=== PATIENT | male | born 1950 | race Caucasian/White ===

== ENCOUNTER 2023-09-08 09:42 | Inpatient (IN) | payer MEDICARE, OTHER ==
[2023-09-08] MEDS: NITROGLYCERIN SL TABS 0.4 MG TAB SUBLINGUAL STA (10:18)
[2023-09-08] MEDS: SODIUM CHLORIDE 0.9% 500 ML 500 ML IV STA (10:35)
[2023-09-08 10:46] LABS: Anisocytosis Slight; Basophils % (A) 0 %; Eosinophils # (A) 0.3 k/uL (0-0.7); Eosinophils % (A) 5 %; HCT 27.4 % (39.0-53.0); HGB 8.4 gm/dL (13.0-17.5); Hypochromasia Slight; Lymphocytes # (A) 0.9 k/uL (1.0-4.8); Lymphocytes % (A) 17 %; MCHC 30.7 g/dL (31.0-37.0); MCV 107.3 fL (80.0-100.0); Macrocytosis Marked; Mean Platelet Volume 7.7; Monocytes # (A) 0.4 k/uL (0-1.0); Monocytes % (A) 7 %; Neutrophils # (A) 3.8 k/uL (1.3-7.7); Neutrophils % (A) 70 %; Platelet Count 198 k/uL (150-450); RBC 2.55 m/uL (4.30-5.90); RDW 17.7 % (11.5-15.5); WBC 5.4 k/uL (3.8-10.6)
--- NOTE | 2023-09-08 10:56 | XR ---
EXAMINATION TYPE: XR chest 2V DATE OF EXAM: 09/08/2023 HISTORY: Shortness of breath. COMPARISON: 09/08/2023 TECHNIQUE: Single view of the chest is submitted. FINDINGS: Demonstrated are scattered senescent parenchymal change. Tracheostomy tube is in place. Persistent pulmonary venous congestion without overt failure. Left basilar effusion with atelectasis and/or infiltrate. The heart is stable. Hilar and mediastinal structures are within normal limits. Degenerative changes are seen of the dorsal spine. IMPRESSION: 1. Overall stable chest.
[2023-09-08 11:14] LABS: Partial Thromboplastin Time 24.9 sec (22.0-30.0); Prothrombin Time 10.7 sec (10.0-12.5)
[2023-09-08 11:17] LABS: ALT 12 U/L (4-49); AST 24 U/L (17-59); African American GFR (CKD) 13 (>60 ml/min/1.73 sqM); Albumin 3.5 g/dL (3.5-5.0); Alkaline Phosphatase 80 U/L (38-126); Anion Gap 7 mmol/L; Blood Urea Nitrogen 33 mg/dL (9-20); Calcium 9.3 mg/dL (8.4-10.2); Carbon Dioxide 35 mmol/L (22-30); Chloride 98 mmol/L (98-107); Glucose 75 mg/dL (74-99); Lipase 97 U/L (23-300); Magnesium 2.1 mg/dL (1.6-2.3); Non-African American GFR(CKD) 11 (>60 ml/min/1.73 sqM); Sodium 140 mmol/L (137-145); Total Bilirubin 0.7 mg/dL (0.2-1.3); Total Protein 6.2 g/dL (6.3-8.2)
[2023-09-08 11:21] LABS: NT-Pro-B-Type Natriuretic Pept 25200 pg/mL
[2023-09-08] MEDS ORDERED: NALOXONE 0.4 MG/ML 1 ML VIAL IV PRN (11:43)
[2023-09-08] MEDS ORDERED: HEPARIN SODIUM 1,000 UN/ML (10ML VL) IV PRN (11:43)
--- NOTE | 2023-09-08 11:46 | ED ---
General Adult HPI - General Chief complaint: Chest Pain Stated complaint: chest pain Time Seen by Provider: 09/08/23 09:57 Source: patient, EMS, RN notes reviewed, old records reviewed Mode of arrival: EMS - History of Present Illness Initial comments: Patient is a 73-year-old male who presents emergency department for chest pain. History of CABG completed in April 2023 at [facility], ESRD on hemodialysis, trach and PEG tube from he believes that admission, who presents emergency department after experiencing chest pain during dialysis. States he received a full run of dialysis. However began developing left-sided chest pain. Was given aspirin 324 mg by EMS on the way to the hospital. Pain resolved but is now back. Approximately 4 out of 10. Does not radiate. No emesis. No nausea. No diaphoresis. Describes as a pressure. Patient does hav e some left-sided chest wall pain as well but he states there is a different pain present as well. Denies any injury. Has no other acute complaints at this time. Presents for further evaluation. - Related Data Home Medications Medication Instructions Recorded Confirmed Acetaminophen [Tylenol 8 Hour] 650 mg PO Q6H PRN 09/08/23 09/08/23 Acetaminophen [Tylenol] 650 mg PEG/G-TUBE Q8H 09/08/23 09/08/23 Amiodarone [Cordarone] 200 mg PO DAILY 09/08/23 09/08/23 Aspirin EC [Ecotrin Low Dose] 81 mg PO DAILY 09/08/23 09/08/23 Atorvastatin [Lipitor] 40 mg PO HS 09/08/23 09/08/23 Docusate [Colace] 100 mg PO DAILY 09/08/23 09/08/23 Famotidine [Pepcid] 20 mg PO Q2D 09/08/23 09/08/23 Heparin Sodium,Porcine (1 ml) 5,000 unit SQ Q12HR 09/08/23 09/08/23 [Heparin Sodium] Insulin Lispro [humaLOG Kwikpen] See Protocol SQ ACHS 09/08/23 09/08/23 Ipratropium-Albuterol Nebulize 3 ml INHALATION RT-Q4H 09/08/23 09/08/23 [Duoneb 0.5 mg-3 mg/3 ml Soln] Melatonin 6 mg PO HS 09/08/23 09/08/23 Midodrine HCl [ProAmatine] 10 mg PO Q8H PRN 09/08/23 09/08/23 Nitroglycerin Sl Tabs [Nitrostat] 0.4 mg SUBLINGUAL Q5M PRN 09/08/23 09/08/23 QUEtiapine [SEROquel] 50 mg PO DAILY 09/08/23 09/08/23 QUEtiapine [SEROquel] 100 mg PO HS 09/08/23 09/08/23 bisacodyL [Dulcolax] 10 mg RECTAL DAILY PRN 09/08/23 09/08/23 carvediloL [Coreg] 3.125 mg PO BID 09/08/23 09/08/23 hydrOXYzine HCL [Atarax] 25 mg PO Q8H PRN 09/08/23 09/08/23 polyethylene glycoL 3350 [Miralax] 17 gm PO DAILY PRN 09/08/23 09/08/23 traMADol HCL 50 mg PO Q6H PRN 09/08/23 09/08/23 Allergies Allergy/AdvReac Type Severity Reaction Status Date / Time No Known Allergies Allergy Verified 09/08/23 11:54 Review of Systems ROS Statement: Those systems with pertinent positive or pertinent negative responses have been documented in the HPI. Review of Systems: CONST: Denies fever EYES: Denies blurry vision ENT: Denies nasal congestion C/V: Endorses chest pain RESP: Denies shortness of breath GI: Denies abdominal pain : Denies dysuria SKIN: Denies rash. MSK: Denies joint pain. NEURO: Denies headache ROS Other: All systems not noted in ROS Statement are negative. Past Medical History Past Medical History: Atrial Fibrillation, Coronary Artery Disease (CAD), COPD, Diabetes Mellitus, Hyperlipidemia, Renal Disease Additional Past Medical History / Comment(s): Tracheostomy, dialysis History of Any Multi-Drug Resistant Organisms: None Reported Past Psychological History: No Psychological Hx Reported Smoking Status: Never smoker Past Alcohol Use History: None Reported Past Drug Use History: None Reported General Exam - General Exam Comments Initial Comments: General: Appears in no acute distress. HEAD: Normal with no signs of head trauma. EYES: PERRLA, EOMI, conjunctiva normal, no discharge. ENT: Hearing grossly intact, normal oropharynx. Trach in place. RESPIRATORY: Clear breath sounds bilaterally. No wheezes, rales, or rhonchi. C/V: Regular rate and rhythm. S1 and S2 auscultated, no edema, peripheral pulses 2+ and intact throughout. Patient does have some chest wall tenderness to palpation over the left chest which patient states is different from his other pain. ABD: Abd is soft, nontender, nondistended. PEG tube in place. EXT: Normal range of motion, no obvious deformity SKIN: No rashes or lesions observed on exposed skin. NEURO: Alert and oriented x 4. Course Vital Signs 09/08/23 09/08/23 09/08/23 09:46 10:24 11:55 Temperature 98.6 F Pulse Rate 75 75 Respiratory 16 18 Rate Blood Pressure 141/76 128/66 159/68 O2 Sat by Pulse 97 93 L Oximetry 09/08/23 12:20 Temperature Pulse Rate 72 Respiratory 17 Rate Blood Pressure 168/68 O2 Sat by Pulse 98 Oximetry Medical Decision Making - Medical Decision Making Was pt. sent in by a medical professional or institution (, PA, QUALITY CONTROL INSPECTOR, urgent care, hospital, or half-way...) When possible be specific @ -Sent from his dialysis center for chest pain Did you speak to anyone other than the patient for history (EMS, parent, family, police, friend...)? What history was obtained from this source @ -No Did you review nursing and triage notes (agree or disagree)? Why? @ -I reviewed and agree with nursing and triage notes Were old charts reviewed (outside hosp., previous admission, EMS record, old EKG, old radiological studies, urgent care reports/EKG's, half-way records)? Report findings @ -No old charts were reviewed Differential Diagnosis (chest pain, altered mental status, abdominal pain women, abdominal pain men, vaginal bleeding, weakness, fever, dyspnea, syncope, headache, dizziness, GI bleed, back pain, seizure, CVA, palpatations, mental health, musculoskeletal)? @ -Differential Chest Pain: Stable Angina, Unstable Angina, STEMI, NSTEMI Aortic Dissection, Pneumothorax, Musculoskeletal, Esophageal Spasm GERD, Cholecystitis, Pancreatitis, Zoster, this is not meant to be an all-inclusive list. EKG interpreted by me (3pts min.). @ -As above X-rays interpreted by me (1pt min.). @ -Chest x-ray reveals no obvious acute cardiopulmonary process. CT interpreted by me (1pt min.). @ -None done U/S interpreted by me (1pt. min.). @ -None done What testing was considered but not performed or refused? (CT, X-rays, U/S, labs)? Why? @ -None What meds were considered but not given or refused? Why? @ -Considered aspirin however patient already took it on the way to the hospital from EMS. Did you discuss the management of the patient with other professionals (professionals i.e. , PA, QUALITY CONTROL INSPECTOR, lab, RT, psych nurse, social media job titles, surgeon/president, teacher, vice squad police officer, patient case manager)? Give summary @ -No Was smoking cessation discussed for >3mins.? @ -No Was critical care preformed (if so, how long)? @ -Yes, 31 minutes. Were there social determinants of health that impacted care today? How? (Home lessness, low income, unemployed, alcoholism, drug addiction, transportation, low edu. Level, literacy, decrease access to med. care, prison, rehab)? @ -No Was there de-escalation of care discussed even if they declined (Discuss DNR or withdrawal of care, Hospice)? DNR status @ -No What co-morbidities impacted this encounter? (DM, HTN, Smoking, COPD, CAD, Cancer, CVA, ARF, Chemo, Hep., AIDS, mental health diagnosis, sleep apnea, morbid obesity)? @ -CAD, CABG Was patient admitted / discharged? Hospital course, mention meds given and route, prescriptions, significant lab abnormalities, going to OR and other pertinent info. @ -Patient presents emergency department complaining of chest pains. Was undergoing dialysis during this chest pain. Vital signs within acceptable limits. Patient will be given nitroglycerin tablet. Already received 324 mg of aspirin. We will obtain cardiac workup. Patient in agreement this plan. Nitro eliminated the patient's chest pain. He was placed on Nitropaste at this time. EKG shows no signs of acute ischemia. Chest x-ray reveals no obvious acute cardiopulmonary process. Labs remarkable for anemia which is likely chronic concerning his renal history but no comparative studies. No complaints of bleeding at this time. Elevated BUN and creatinine in the setting of ESRD on hemodialysis. Troponin slightly elevated to 0.052, likely either secondary to his ESRD on hemodialysis or possibly ACS in nature. As the patient did respond to nitroglycerin and chest pain is resolved with his cardiac history I am concerned for possible ACS. Patient be started on a heparin drip for NSTEMI. We will monitor the troponin at this time. Patient was in agreement this plan. Cardiology consulted. I spoke with the admitting team, Dr. Belle of [facility] call who accepted the admission. Undiagnosed new problem with uncertain prognosis? @ -No Drug Therapy requiring intensive monitoring for toxicity (Heparin, Nitro, Insulin, Cardizem)? @ -No Were any procedures done? @ -No Diagnosis/symptom? @ -NSTEMI, ESRD on hemodialysis Acute, or Chronic, or Acute on Chronic? @ -Acute Uncomplicated (without systemic symptoms) or Complicated (systemic symptoms)? @ -Complicated Side effects of treatment? @ -No Exacerbation, Progression, or Severe Exacerbation? @ -No Poses a threat to life or bodily function? How? (Chest pain, [place], [place], pneumonia, PE, COPD, DKA, ARF, appy, cholecystitis, CVA, Diverticulitis, Homicidal, Suicidal, threat to staff... and all critical care pts) @ -Yes - Lab Data Result diagrams: 09/08/23 10:32 09/08/23 10:32 Lab Results 09/08/23 09/08/23 09/08/23 Range/Units 10:32 10:32 10:32 WBC 5.4 (3.8-10.6) k/uL RBC 2.55 L (4.30-5.90) m/uL Hgb 8.4 L (13.0-17.5) gm/dL Hct 27.4 L (39.0-53.0) % MCV 107.3 H (80.0-100.0) fL MCH 33.0 (25.0-35.0) pg MCHC 30.7 L (31.0-37.0) g/dL RDW 17.7 H (11.5-15.5) % Plt Count 198 (150-450) k/uL MPV 7.7 Neutrophils % 70 % Lymphocytes % 17 % Monocytes % 7 % Eosinophils % 5 % Basophils % 0 % Neutrophils # 3.8 (1.3-7.7) k/uL Lymphocytes # 0.9 L (1.0-4.8) k/uL Monocytes # 0.4 (0-1.0) k/uL Eosinophils # 0.3 (0-0.7) k/uL Basophils # 0.0 (0-0.2) k/uL Manual Slide Review Performed Hypochromasia Slight Anisocytosis Slight Macrocytosis Marked A PT 10.7 (10.0-12.5) sec INR 1.0 (<1.2) APTT 24.9 (22.0-30.0) sec Sodium 140 (137-145) mmol/L Potassium 4.0 (3.5-5.1) mmol/L Chloride 98 (98-107) mmol/L Carbon Dioxide 35 H (22-30) mmol/L Anion Gap 7 mmol/L BUN 33 H (9-20) mg/dL Creatinine 4.83 H (0.66-1.25) mg/dL Est GFR (CKD-EPI)AfAm 13 (>60 ml/min/1.73 sqM) Est GFR (CKD-EPI)NonAf 11 (>60 ml/min/1.73 sqM) Glucose 75 (74-99) mg/dL Calcium 9.3 (8.4-10.2) mg/dL Magnesium 2.1 (1.6-2.3) mg/dL Total Bilirubin 0.7 (0.2-1.3) mg/dL AST 24 (17-59) U/L ALT 12 (4-49) U/L Alkaline Phosphatase 80 (38-126) U/L Troponin I (0.000-0.034) ng/mL NT-Pro-B Natriuret Pep 89607 pg/mL Total Protein 6.2 L (6.3-8.2) g/dL Albumin 3.5 (3.5-5.0) g/dL Lipase 97 (23-300) U/L 09/08/23 Range/Units 10:32 WBC (3.8-10.6) k/uL RBC (4.30-5.90) m/uL Hgb (13.0-17.5) gm/dL Hct (39.0-53.0) % MCV (80.0-100.0) fL MCH (25.0-35.0) pg MCHC (31.0-37.0) g/dL RDW (11.5-15.5) % Plt Count (150-450) k/uL MPV Neutrophils % % Lymphocytes % % Monocytes % % Eosinophils % % Basophils % % Neutrophils # (1.3-7.7) k/uL Lymphocytes # (1.0-4.8) k/uL Monocytes # (0-1.0) k/uL Eosinophils # (0-0.7) k/uL Basophils # (0-0.2) k/uL Manual Slide Review Hypochromasia Anisocytosis Macrocytosis PT (10.0-12.5) sec INR (<1.2) APTT (22.0-30.0) sec Sodium (137-145) mmol/L Potassium (3.5-5.1) mmol/L Chloride (98-107) mmol/L Carbon Dioxide (22-30) mmol/L Anion Gap mmol/L BUN (9-20) mg/dL Creatinine (0.66-1.25) mg/dL Est GFR (CKD-EPI)AfAm (>60 ml/min/1.73 sqM) Est GFR (CKD-EPI)NonAf (>60 ml/min/1.73 sqM) Glucose (74-99) mg/dL Calcium (8.4-10.2) mg/dL Magnesium (1.6-2.3) mg/dL Total Bilirubin (0.2-1.3) mg/dL AST (17-59) U/L ALT (4-49) U/L Alkaline Phosphatase (38-126) U/L Troponin I 0.052 H* (0.000-0.034) ng/mL NT-Pro-B Natriuret Pep pg/mL Total Protein (6.3-8.2) g/dL Albumin (3.5-5.0) g/dL Lipase (23-300) U/L - EKG Data -: EKG Interpreted by Me EKG Comments: 12-lead Electrocardiogram Interpretation Note EKG was reviewed and interpreted by myself. 12-lead ECG performed at 0945 is int erpreted by me as revealing normal sinus rhythm at a rate of 75 beats per minute. Dumont is normal. MO interval is 167 ms, QRS durations 106 ms, QTc is 452 ms.. There were no ST or T wave abnormalities to suggest myocardial ischemia or injury. R wave progression across the precordium was satisfactory. By my interpretation this EKG is non-diagnostic for acute ischemia. Disposition Clinical Impression: NSTEMI (non-ST elevated myocardial infarction), ESRD on hemodialysis Disposition: ADMITTED IP TO THIS HOSP Condition: Stable Time of Disposition: 11:46
[2023-09-08] MEDS: NITROGLYCERIN OINT 1 INCH/GM PACKET TOPICAL SCH (11:48)
[2023-09-08] MEDS: HEPARIN SODIUM 1,000 UN/ML (10ML VL) IV ONE (11:50)
[2023-09-08] MEDS: HEPARIN SOD,PORK IN 0.45% NACL 25,000 UNIT in 0.45% NACL 1 250ML.BAG IV SCH (11:52)
--- NOTE | 2023-09-08 12:26 | P.HPIM ---
History of Present Illness H&P Date: 09/08/23 History of Presenting Illness: Patient is a very pleasant 73-year-old male with a past medical history of CAD status post CABG x 3 in April 2023 at [facility], tracheostomy, paroxysmal atrial fibrillation, hypertension, hyperlipidemia, and ESRD on hemodialysis. Patient presented to our facility with a chief complaint of chest pain. Patient reports he was approximately 2 and half hours into his hemodialysis session when he developed a pressure-like pain to his midsternal and left anterior chest. He reports his dialysis was stopped and EMS was called for transport to the hospital. Patient received aspirin and nitroglycerin by EMS and route to our facility and reported resolution of chest pain but returned shortly after arriving to our hospital. Patient again received sublingual nitro in the emergency department which he reports resulted in total resolution of his chest pain. Patient denies having any associated symptoms including dizziness, lightheadedness, diaphoresis, palpitations, shortness of breath, nausea, vomiting, or experiencing any numbness/tingling/weakness/increased swelling in his extremities. Upon arrival to our facility patient underwent evaluation in the emergency department. Vital signs upon arrival show blood pressure 141/76, heart rate 75, respiratory rate 16, temp 98.6 F, and SpO2 of 97% on 3 L O2 via nasal cannula. EKG was completed showing normal sinus rhythm at 75 bpm with T wave inversion in lateral lead aVL otherwise showing no noted ST abnormalities upon personal review and interpretation. Chest x-ray completed negative for acute cardiopulmonary process. Labs were completed and reviewed. CBC showing macrocytic anemia with hemoglobin of 8.4 and MCV of 107.3. Coagulation profile normal findings. BMP showing hypercarbia with bicarb of 35 and consistent with known ESRD with BUN of 33, creatinine 4.83, and GFR of 11. Blood glucose was 75. Liver profile unremarkable. Troponin was elevated at 0.052. proBNP was 25,200. Patient started on low intensity heparin infusion for treatment of unstable angina and was admitted under services with consultation to cardiology. Review of systems: Pertinent positives and negatives as discussed in HPI, a complete review of systems was performed and all other systems are negative. Physical exam: Vital signs reviewed and stable. General: Nontoxic, no distress and appears stated age. Derm: Skin warm and dry, normal coloration for ethnicity. Head: Atraumatic, normocephalic and symmetric. Eyes: EOMs intact, no lid lag, and anicteric sclera Mouth: no lip lesions, mucus membranes moist Cardiovascular: regular rate and rhythm with normal S1S2, systolic murmur, positive posterior tibial pulses bilaterally, and cap refill < 2 seconds. AV fistula left upper extremity with bruit and thrill intact. Lungs: Respirations even, regular, and unlabored on room air. Lungs CTA bilaterally, no rhonchi, no rales, no wheezing, and no accessory muscle usage. Tracheostomy with appliance in place. Abdominal: soft, nontender to palpation, no guarding, no appreciable organomegaly Ext: ROM intact. No gross muscle atrophy, no edema, no contractures Neuro: Speech clear, face symmetrical and CN II-XII grossly intact with no noted focal neuro deficits Psych: Alert and oriented to person, place, time, and situation. Appropriate and pleasant affect. Assessment and Plan of Care: Unstable angina Elevated troponin History of CAD status post CABG x 3 Hypertension Hyperlipidemia ESRD on hemodialysis -Cardiology consulted, appreciate recommendations -Continue heparin infusion at 12 units/kg/h with repeat PTT every 6 hours to monitor for goal therapeutic range of 44 to 79 seconds. -Telemetry monitoring -Trend troponins -Cardiac diet, NPO at midnight -Continue aspirin 81 mg daily, amiodarone 200 mg daily, atorvastatin 40 mg nightly, carvedilol 3.125 mg twice daily with meals, and PRN midodrine 10 mg every 8 hours as needed for hypotension with systolic pressure less than 100. -Obtain records from [place]. -Consult placed to nephrology for management of dialysis Data and imaging reviewed: As stated above in HPI The patient is admitted with an anticipated greater than 2 midnight stay for evaluation of unstable angina with elevated troponin CODE STATUS: Full code DVT prophylaxis: Heparin Anticipated discharge date: Pending clinical course Anticipated discharge place: Pending clinical course Patient was seen independently by Nurse Practitioner. This document was prepared using Zaarly dictation software. Please allow for errors in thermal engineer while rare they do occur. Ramesh Doyle NP rendered care for this patient independently, reviewed the findings and plan as documented in the note above. I did not physically speak with or examine the patient on this date. Past Medical History Past Medical History: Atrial Fibrillation, Coronary Artery Disease (CAD), COPD, Diabetes Mellitus, Hyperlipidemia, Renal Disease Additional Past Medical History / Comment(s): Tracheostomy, dialysis History of Any Multi-Drug Resistant Organisms: None Reported Past Psychological History: No Psychological Hx Reported Smoking Status: Never smoker Past Alcohol Use History: None Reported Past Drug Use History: None Reported Medications and Allergies Home Medications Medication Instructions Recorded Confirmed Type Acetaminophen [Tylenol 8 Hour] 650 mg PO Q6H PRN 09/08/23 09/08/23 History Acetaminophen [Tylenol] 650 mg PEG/G-TUBE Q8H 09/08/23 09/08/23 History Amiodarone [Cordarone] 200 mg PO DAILY 09/08/23 09/08/23 History Aspirin EC [Ecotrin Low Dose] 81 mg PO DAILY 09/08/23 09/08/23 History Atorvastatin [Lipitor] 40 mg PO HS 09/08/23 09/08/23 History Docusate [Colace] 100 mg PO DAILY 09/08/23 09/08/23 History Famotidine [Pepcid] 20 mg PO Q2D 09/08/23 09/08/23 History Heparin Sodium,Porcine (1 ml) 5,000 unit SQ Q12HR 09/08/23 09/08/23 History [Heparin Sodium] Insulin Lispro [humaLOG Kwikpen] See Protocol SQ ACHS 09/08/23 09/08/23 History Ipratropium-Albuterol Nebulize 3 ml INHALATION RT-Q4H 09/08/23 09/08/23 History [Duoneb 0.5 mg-3 mg/3 ml Soln] Melatonin 6 mg PO HS 09/08/23 09/08/23 History Midodrine HCl [ProAmatine] 10 mg PO Q8H PRN 09/08/23 09/08/23 History Nitroglycerin Sl Tabs [Nitrostat] 0.4 mg SUBLINGUAL Q5M PRN 09/08/23 09/08/23 History QUEtiapine [SEROquel] 50 mg PO DAILY 09/08/23 09/08/23 History QUEtiapine [SEROquel] 100 mg PO HS 09/08/23 09/08/23 History bisacodyL [Dulcolax] 10 mg RECTAL DAILY PRN 09/08/23 09/08/23 History carvediloL [Coreg] 3.125 mg PO BID 09/08/23 09/08/23 History hydrOXYzine HCL [Atarax] 25 mg PO Q8H PRN 09/08/23 09/08/23 History polyethylene glycoL 3350 [Miralax] 17 gm PO DAILY PRN 09/08/23 09/08/23 History traMADol HCL 50 mg PO Q6H PRN 09/08/23 09/08/23 History Allergies Allergy/AdvReac Type Severity Reaction Status Date / Time No Known Allergies Allergy Verified 09/08/23 11:54 Physical Exam Vitals: Vital Signs Temp Pulse Resp BP Pulse Ox 09/08/23 10:24 128/66 09/08/23 09:46 98.6 F 75 16 141/76 97 Intake and Output 09/07/23 09/08/23 09/08/23 22:59 06:59 14:59 Other: Weight 108.862 kg Results CBC & Chem 7: 09/08/23 10:32 09/08/23 10:32 Labs: Abnormal Lab Results - Last 24 Hours (Table) 09/08/23 09/08/23 09/08/23 Range/Units 10:32 10:32 10:32 RBC 2.55 L (4.30-5.90) m/uL Hgb 8.4 L (13.0-17.5) gm/dL Hct 27.4 L (39.0-53.0) % MCV 107.3 H (80.0-100.0) fL MCHC 30.7 L (31.0-37.0) g/dL RDW 17.7 H (11.5-15.5) % Macrocytosis Marked A Carbon Dioxide 35 H (22-30) mmol/L BUN 33 H (9-20) mg/dL Creatinine 4.83 H (0.66-1.25) mg/dL Troponin I 0.052 H* (0.000-0.034) ng/mL Total Protein 6.2 L (6.3-8.2) g/dL
[2023-09-08] MEDS ORDERED: bisacodyL 10 MG SUPP RECTAL PRN (13:49)
[2023-09-08] MEDS ORDERED: DEXTROSE 50% SYRINGE 50 ML IVP PRN ×2 (13:50)
[2023-09-08] MEDS: FAMOTIDINE 20 MG TAB PO SCH (14:20)
[2023-09-08] MEDS: AMIODARONE 200 MG TAB PO SCH (14:20)
[2023-09-08] MEDS: ACETAMINOPHEN TAB 325 MG TAB PEG/G-TUBE SCH (14:21)
[2023-09-08] MEDS: carvediloL 3.125 MG TAB PO SCH (14:21)
[2023-09-08] MEDS: ASPIRIN 81 MG PO SCH (14:22)
--- NOTE | 2023-09-08 15:08 | P.CRDCN ---
History of Present Illness Consult date: 09/08/23 Reason for Consult (text): Non-ST elevated myocardial infarction History of present illness: This is a 73-year-old male patient with history of coronary artery disease with CABG 3 months ago, history of end-stage renal disease, tracheostomy, paroxysmal atrial fibrillation, COPD, diabetes mellitus type 2, benign prostatic hypertrophy, hypertension, hyperlipidemia, obstructive sleep apnea history of PEG tube, anemia of chronic kidney disease. We have been asked to evaluate the patient for non-ST elevated myocardial infarction. Patient gives history that in [place] 3 months ago he had CABG surgery. He is unable to give much other detail. He is currently at [facility]. Patient denies having history of heart failure and has never been diagnosed with [place]. He denies COPD. He denies lower extremity edema. No nausea or vomiting. No blood in his urine or stool. He denies having stroke or seizure. He states he has been brought into the hospital due to shortness of breath. His last dialysis was on Tuesday. He states he was at dialysis when he developed shortness of breath and was brought in. No chest pain, tightness or chest pressure. He does have a cough with sputum production. Patient has been started on a heparin drip. Patient is seen today in the emergency center waiting for bed on the cardiac stepdown unit. He EKG: Sinus rhythm with no acute ST-T wave changes. Chest x-ray: Persistent pulmonary venous congestion without overt failure. Overall stable chest. Left basilar effusion with atelectasis and/or infiltrate. Laboratory studies: WBC 5.4, hemoglobin 8.4, platelet count 198. INR is 1. Sodium 140, potassium 4, BUN 33 creatinine 4.83. Troponin 0.052 and 0.055. proBNP 25,200. Home cardiac medications: Amiodarone 200 mg daily, aspirin 81 mg daily, atorvastatin 40 mg at bedtime, Coreg 3.125 mg twice daily, heparin 5000 units subcu every 12 hours, Nitrostat as needed. Review Of Systems: At the time of my exam: CONSTITUTIONAL: Denies fever or chills. HEENT: Denies blurred vision, vision changes, or eye pain. Denies hemoptysis CARDIOVASCULAR: Denies chest pain. Denies orthopnea. Denies PND. Denies palpitations RESPIRATORY: Reports s shortness of breath. GASTROINTESTINAL: Denies abdominal pain. Denies nausea or vomiting. HEMATOLOGIC: Denies bleeding disorders. GENITOURINARY: Denies any blood in urine. SKIN: Denies puritis. Denies rash. Physical examination: Gen: This is a 73-year-old male in no acute distress VS: reviewed, 134/117, heart rate 78. HEENT: Head is atraumatic, normocephalic. Pupils equal, round. Sclerae is anicteric. NECK: Supple. No JVD. + Trach LUNGS: Clear to auscultation. No wheezes or rhonchi. No intercostal retractions. HEART: Regular rate and rhythm. No murmur. ABDOMEN: Soft No tenderness. + PEG tube EXTREMITIES: No pedal edema. No calf tenderness. NEUROLOGICAL: Patient is awake, alert and oriented x3. Assessment: Elevated troponin secondary to end-stage renal disease, chronic myocardial injury End-stage renal disease on hemodialysis History of trach Coronary artery disease with previous CABG, patient states in [place] 3 months ago Paroxysmal atrial fibrillation COPD Diabetes mellitus type 2 Hypertension Hyperlipidemia Plan: Resume patient's home cardiac medications Continue heparin for 24 hours Obtain TSH Obtain 2-D echocardiogram and Doppler study to assess cardiac structure and function Obtain records from [facility] where patient had CABG Further recommendations to follow based upon clinical course Thank you kindly for this consultation. Nurse practitioner note has been reviewed, I agree with documented findings and plan of care. Patient was seen and examined. Past Medical History Past Medical History: Atrial Fibrillation, Coronary Artery Disease (CAD), COPD, Diabetes Mellitus, Hyperlipidemia, Renal Disease Additional Past Medical History / Comment(s): Tracheostomy, dialysis History of Any Multi-Drug Resistant Organisms: None Reported Past Psychological History: No Psychological Hx Reported Smoking Status: Never smoker Past Alcohol Use History: None Reported Past Drug Use History: None Reported Medications and Allergies Home Medications Medication Instructions Recorded Confirmed Type Acetaminophen [Tylenol 8 Hour] 650 mg PO Q6H PRN 09/08/23 09/08/23 History Acetaminophen [Tylenol] 650 mg PEG/G-TUBE Q8H 09/08/23 09/08/23 History Amiodarone [Cordarone] 200 mg PO DAILY 09/08/23 09/08/23 History Aspirin EC [Ecotrin Low Dose] 81 mg PO DAILY 09/08/23 09/08/23 History Atorvastatin [Lipitor] 40 mg PO HS 09/08/23 09/08/23 History Docusate [Colace] 100 mg PO DAILY 09/08/23 09/08/23 History Famotidine [Pepcid] 20 mg PO Q2D 09/08/23 09/08/23 History Heparin Sodium,Porcine (1 ml) 5,000 unit SQ Q12HR 09/08/23 09/08/23 History [Heparin Sodium] Insulin Lispro [humaLOG Kwikpen] See Protocol SQ ACHS 09/08/23 09/08/23 History Ipratropium-Albuterol Nebulize 3 ml INHALATION RT-Q4H 09/08/23 09/08/23 History [Duoneb 0.5 mg-3 mg/3 ml Soln] Melatonin 6 mg PO HS 09/08/23 09/08/23 History Midodrine HCl [ProAmatine] 10 mg PO Q8H PRN 09/08/23 09/08/23 History Nitroglycerin Sl Tabs [Nitrostat] 0.4 mg SUBLINGUAL Q5M PRN 09/08/23 09/08/23 History QUEtiapine [SEROquel] 50 mg PO DAILY 09/08/23 09/08/23 History QUEtiapine [SEROquel] 100 mg PO HS 09/08/23 09/08/23 History bisacodyL [Dulcolax] 10 mg RECTAL DAILY PRN 09/08/23 09/08/23 History carvediloL [Coreg] 3.125 mg PO BID 09/08/23 09/08/23 History hydrOXYzine HCL [Atarax] 25 mg PO Q8H PRN 09/08/23 09/08/23 History polyethylene glycoL 3350 [Miralax] 17 gm PO DAILY PRN 09/08/23 09/08/23 History traMADol HCL 50 mg PO Q6H PRN 09/08/23 09/08/23 History Allergies Allergy/AdvReac Type Severity Reaction Status Date / Time No Known Allergies Allergy Verified 09/08/23 11:54 Physical Exam Vitals: Vital Signs Temp Pulse Resp BP Pulse Ox 09/08/23 12:20 72 17 168/68 98 09/08/23 11:55 75 18 159/68 93 L 09/08/23 10:24 128/66 09/08/23 09:46 98.6 F 75 16 141/76 97 Intake and Output 09/07/23 09/08/23 09/08/23 22:59 06:59 14:59 Other: Weight 108.862 kg Results 09/08/23 10:32 09/08/23 10:32 Cardiac Enzymes 09/08/23 09/08/23 Range/Units 10:32 10:32 AST 24 (17-59) U/L Troponin I 0.052 H* (0.000-0.034) ng/mL Coagulation 09/08/23 Range/Units 10:32 PT 10.7 (10.0-12.5) sec APTT 24.9 (22.0-30.0) sec CBC 09/08/23 Range/Units 10:32 WBC 5.4 (3.8-10.6) k/uL RBC 2.55 L (4.30-5.90) m/uL Hgb 8.4 L (13.0-17.5) gm/dL Hct 27.4 L (39.0-53.0) % Plt Count 198 (150-450) k/uL Comprehensive Metabolic Panel 09/08/23 Range/Units 10:32 Sodium 140 (137-145) mmol/L Potassium 4.0 (3.5-5.1) mmol/L Chloride 98 (98-107) mmol/L Carbon Dioxide 35 H (22-30) mmol/L BUN 33 H (9-20) mg/dL Creatinine 4.83 H (0.66-1.25) mg/dL Glucose 75 (74-99) mg/dL Calcium 9.3 (8.4-10.2) mg/dL AST 24 (17-59) U/L ALT 12 (4-49) U/L Alkaline Phosphatase 80 (38-126) U/L Total Protein 6.2 L (6.3-8.2) g/dL Albumin 3.5 (3.5-5.0) g/dL Current Medications Generic Name Dose Route Start Last Admin Trade Name Freq PRN Reason Stop Dose Admin Heparin Sodium (Porcine) 0 unit 09/08/23 11:43 Heparin Sodium 1,000 Un/Ml (10ml Vl) IV PER PROTOCOL PRN Low PTT Protocol Heparin Sodium/Sodium Chloride 250 mls @ 10 mls/hr 09/08/23 11:45 09/08/23 11:52 25,000 unit/ Sodium Chloride IV 9.186 units/kg/hr .Q24H STEPH 10 mls/hr Administration Protocol 9.186 UNITS/KG/HR Naloxone HCl 0.2 mg 09/08/23 11:43 Naloxone 0.4 Mg/Ml 1 Ml Vial IV Q2M PRN Opioid Reversal Nitroglycerin 0.5 inch 09/08/23 11:15 09/08/23 11:48 Nitroglycerin Oint 1 Inch/Gm Packet TOPICAL 0.5 inch Q8HR [facility] Administration Intake and Output 09/07/23 09/08/23 09/08/23 22:59 06:59 14:59 Other: Weight 108.862 kg Patient Weight 09/09/23 06:59 Weight 108.862 kg 09/08/23 10:32 09/08/23 10:32
[2023-09-08] MEDS: IPRATROPIUM-ALBUTEROL 3 ML NEB INHALATION SCH (15:30)
[2023-09-08] MEDS: ACETAMINOPHEN TAB 325 MG TAB PO PRN (16:42)
[2023-09-08] MEDS: INSULIN ASPART (NovoLOG) 100 UNIT/ML VIAL SQ SCH (16:56)
[2023-09-08 17:17] LABS: Glucose,Whole Blood 80 mg/dL (70-110)
[2023-09-08] MEDS ORDERED: NITROGLYCERIN SL TABS 0.4 MG TAB SUBLINGUAL PRN (18:40)
[2023-09-08] MEDS ORDERED: polyethylene glycoL 3350 17 GM POWD.PACK PO PRN (18:40)
[2023-09-08] MEDS ORDERED: MIDODRINE 5 MG TAB PO PRN (18:40)
[2023-09-08 20:07] LABS: Glucose,Whole Blood 121 mg/dL (70-110)
[2023-09-08] MEDS: ATORVASTATIN 40 MG TAB PO SCH (20:07)
[2023-09-08] MEDS: QUEtiapine 100 MG TAB PO SCH (20:07)
[2023-09-08] MEDS: traMADol 50 MG TAB PO PRN (23:05)
[2023-09-09 06:06] LABS: Glucose,Whole Blood 97 mg/dL (70-110)
[2023-09-09 09:36] LABS: Anisocytosis Slight; Basophils % (A) 1 %; Eosinophils # (A) 0.2 k/uL (0-0.7); Eosinophils % (A) 4 %; HCT 24.9 % (39.0-53.0); HGB 7.9 gm/dL (13.0-17.5); Hypochromasia Moderate; Lymphocytes % (A) 17 %; MCH 34.7 pg (25.0-35.0); MCHC 31.8 g/dL (31.0-37.0); MCV 109.2 fL (80.0-100.0); Monocytes # (A) 0.4 k/uL (0-1.0); Monocytes % (A) 7 %; Neutrophils % (A) 69 %; Platelet Count 183 k/uL (150-450); RBC 2.28 m/uL (4.30-5.90); RDW 18.1 % (11.5-15.5); WBC 5.8 k/uL (3.8-10.6)
[2023-09-09 09:43] LABS: Partial Thromboplastin Time 50.3 sec (22.0-30.0); Prothrombin Time 11.2 sec (10.0-12.5)
[2023-09-09 09:47] LABS: Macrocytosis Marked
[2023-09-09] MEDS: DOCUSATE 100 MG CAP PO SCH (09:57)
[2023-09-09] MEDS: QUEtiapine 50 MG TAB PO SCH (09:57)
[2023-09-09 10:05] LABS: ALT 12 U/L (4-49); AST 23 U/L (17-59); African American GFR (CKD) 8 (>60 ml/min/1.73 sqM); Albumin 3.3 g/dL (3.5-5.0); Alkaline Phosphatase 91 U/L (38-126); Anion Gap 10 mmol/L; Blood Urea Nitrogen 48 mg/dL (9-20); Calcium 9.6 mg/dL (8.4-10.2); Carbon Dioxide 30 mmol/L (22-30); Chloride 99 mmol/L (98-107); Glucose 77 mg/dL (74-99); Non-African American GFR(CKD) 7 (>60 ml/min/1.73 sqM); Potassium 4.7 mmol/L (3.5-5.1); Sodium 139 mmol/L (137-145); Total Bilirubin 0.6 mg/dL (0.2-1.3); Total Protein 5.9 g/dL (6.3-8.2)
[2023-09-09 11:34] LABS: Glucose,Whole Blood 79 mg/dL (70-110)
--- NOTE | 2023-09-09 11:39 | P.NPCON ---
History of Present Illness - Reason for Consult end stage renal disease - History of Present Illness Reason for consultation: End-stage renal disease History of present illness: Patient is a 73-year-old male seen in renal consultation for end-stage renal disease. He is maintained on hemodialysis on Tuesday schedule via left upper extremity AV fistula. Patient resides at [facility]. Patient went to hemodialysis yesterday but the treatment was cut short by about 1 hour. Patient has a tracheostomy and a PEG tube. Patient does tolerate oral intake and the PEG tube is currently not being used. Patient was sent to the hospital due to chest pain that he developed during dialysis. Currently the patient states that chest pain has resolved. Echocardiogram is pending. He is being followed by cardiology. Patient does have history of coronary disease and underwent CABG recently. Patient also has longstanding history of diabetes. Currently denies any active complaints. Vital signs are stable. General: No acute distress. HEENT: Head exam is unremarkable. Tracheostomy noted. LUNGS: No audible rhonchi or wheezes. HEART: Rate and Rhythm are regular. ABDOMEN: Nontender. EXTREMITITES: No edema. Past Medical History Past Medical History: Atrial Fibrillation, Coronary Artery Disease (CAD), COPD, Diabetes Mellitus, Hyperlipidemia, Renal Disease Additional Past Medical History / Comment(s): Tracheostomy, dialysis History of Any Multi-Drug Resistant Organisms: None Reported Past Surgical History: Coronary Bypass/CABG Additional Past Surgical History / Comment(s): kidneys removed 5 yrs ago lt arm fistula Past Psychological History: No Psychological Hx Reported Smoking Status: Never smoker Past Alcohol Use History: None Reported Past Drug Use History: None Reported Medications and Allergies Home Medications Medication Instructions Recorded Confirmed Type Acetaminophen [Tylenol 8 Hour] 650 mg PO Q6H PRN 09/08/23 09/08/23 History Acetaminophen [Tylenol] 650 mg PEG/G-TUBE Q8H 09/08/23 09/08/23 History Amiodarone [Cordarone] 200 mg PO DAILY 09/08/23 09/08/23 History Aspirin EC [Ecotrin Low Dose] 81 mg PO DAILY 09/08/23 09/08/23 History Atorvastatin [Lipitor] 40 mg PO HS 09/08/23 09/08/23 History Docusate [Colace] 100 mg PO DAILY 09/08/23 09/08/23 History Famotidine [Pepcid] 20 mg PO Q2D 09/08/23 09/08/23 History Heparin Sodium,Porcine (1 ml) 5,000 unit SQ Q12HR 09/08/23 09/08/23 History [Heparin Sodium] Insulin Lispro [humaLOG Kwikpen] See Protocol SQ ACHS 09/08/23 09/08/23 History Ipratropium-Albuterol Nebulize 3 ml INHALATION RT-Q4H 09/08/23 09/08/23 History [Duoneb 0.5 mg-3 mg/3 ml Soln] Melatonin 6 mg PO HS 09/08/23 09/08/23 History Midodrine HCl [ProAmatine] 10 mg PO Q8H PRN 09/08/23 09/08/23 History Nitroglycerin Sl Tabs [Nitrostat] 0.4 mg SUBLINGUAL Q5M PRN 09/08/23 09/08/23 History QUEtiapine [SEROquel] 50 mg PO DAILY 09/08/23 09/08/23 History QUEtiapine [SEROquel] 100 mg PO HS 09/08/23 09/08/23 History bisacodyL [Dulcolax] 10 mg RECTAL DAILY PRN 09/08/23 09/08/23 History carvediloL [Coreg] 3.125 mg PO BID 09/08/23 09/08/23 History hydrOXYzine HCL [Atarax] 25 mg PO Q8H PRN 09/08/23 09/08/23 History polyethylene glycoL 3350 [Miralax] 17 gm PO DAILY PRN 09/08/23 09/08/23 History traMADol HCL 50 mg PO Q6H PRN 09/08/23 09/08/23 History Allergies Allergy/AdvReac Type Severity Reaction Status Date / Time No Known Allergies Allergy Verified 09/08/23 11:54 Physical Exam Vitals: Vital Signs Temp Pulse Pulse Resp BP BP Pulse Ox 09/09/23 09:28 76 09/09/23 09:12 72 09/09/23 03:49 98.3 F 70 20 167/71 97 09/09/23 00:10 70 09/08/23 23:58 72 09/08/23 23:21 98.4 F 76 20 156/70 96 09/08/23 20:00 98.4 F 69 18 162/72 99 09/08/23 16:00 73 16 174/79 94 L 09/08/23 15:57 74 09/08/23 15:40 70 09/08/23 15:12 98.2 F 77 19 147/94 97 09/08/23 14:23 98.1 F 78 16 157/69 97 09/08/23 12:20 72 17 168/68 98 09/08/23 11:55 75 18 159/68 93 L Intake and Output 09/08/23 09/09/23 09/09/23 22:59 06:59 14:59 Intake Total 118 Balance 118 Intake: Oral 118 Other: Voiding Method Diaper Diaper Incontinent Incontinent # Bowel Movements 1 Weight 108.862 kg 101 kg Results - Lab Results Most recent lab results Calcium 9.6 mg/dL (8.4-10.2) 09/09/23 08:15 Magnesium 2.0 mg/dL (1.6-2.3) 09/09/23 08:15 09/09/23 08:15 09/09/23 08:15 Assessment and Plan Plan: Assessment: 1. End-stage renal disease maintained on hemodialysis on Tuesday schedule. 2. Coronary disease status post CABG. 3. Chest pain. Cardiology following. 4. Chronic tracheostomy and PEG tube. PEG tube not being used. Tolerating oral intake. 5. Anemia of chronic kidney disease. 6. Diabetes mellitus. Plan: Hemodialysis tomorrow. Check iron studies. Thank you for the consultation. I will continue to follow the patient with you during his hospital stay.
--- NOTE | 2023-09-09 13:54 | P.PN ---
Subjective Progress Note Date: 09/09/23 History of Presenting Illness: Patient is a very pleasant 73-year-old male with a past medical history of CAD status post CABG x 3 in April 2023 at [facility], tracheostomy, paroxysmal atrial fibrillation, hypertension, hyperlipidemia, and ESRD on hemod ialysis. Patient presented to our facility with a chief complaint of chest pain. Patient reports he was approximately 2 and half hours into his hemodialysis session when he developed a pressure-like pain to his midsternal and left anterior chest. He reports his dialysis was stopped and EMS was called for transport to the hospital. Patient received aspirin and nitroglycerin by EMS and route to our facility and reported resolution of chest pain but returned shortly after arriving to our hospital. Patient again received sublingual nitro in the emergency department which he reports resulted in total resolution of his chest pain. Patient denies having any associated symptoms including dizziness, lightheadedness, diaphoresis, palpitations, shortness of breath, nausea, vomiting, or experiencing any numbness/tingling/weakness/increased swelling in his extremities. Upon arrival to our facility patient underwent evaluation in the emergency department. Vital signs upon arrival show blood pressure 141/76, heart rate 75, respiratory rate 16, temp 98.6 F, and SpO2 of 97% on 3 L O2 via nasal cannula. EKG was completed showing normal sinus rhythm at 75 bpm with T wave inversion in lateral lead aVL otherwise showing no noted ST abnormalities upon personal review and interpretation. Chest x-ray completed negative for acute cardiopulmonary process. Labs were completed and reviewed. CBC showing macrocytic anemia with hemoglobin of 8.4 and MCV of 107.3. Coagulation profile normal findings. BMP showing hypercarbia with bicarb of 35 and consistent with known ESRD with BUN of 33, creatinine 4.83, and GFR of 11. Blood glucose was 75. Liver profile unremarkable. Troponin was elevated at 0.052. proBNP was 25,200. Patient started on low intensity heparin infusion for treatment of unstable angina and was admitted under services with consultation to cardiology. Physical exam: Vital signs reviewed and stable. General: Nontoxic, no distress and appears stated age. Derm: Skin warm and dry, normal coloration for ethnicity. Head: Atraumatic, normocephalic and symmetric. Eyes: EOMs intact, no lid lag, and anicteric sclera Mouth: no lip lesions, mucus membranes moist Cardiovascular: regular rate and rhythm with normal S1S2, systolic murmur, positive posterior tibial pulses bilaterally, and cap refill < 2 seconds. AV fistula left upper extremity with bruit and thrill intact. Lungs: Respirations even, regular, and unlabored on room air. Lungs CTA bilaterally, no rhonchi, no rales, no wheezing, and no accessory muscle usage. Tracheostomy with appliance in place. Abdominal: soft, nontender to palpation, no guarding, no appreciable organomegaly Ext: ROM intact. No gross muscle atrophy, 1+ bilateral lower extremity edema, no contractures Neuro: Speech clear, face symmetrical and CN II-XII grossly intact with no noted focal neuro deficits Psych: Alert and oriented to person, place, time, and situation. Appropriate and pleasant affect. Assessment and Plan of Care: Unstable angina Elevated troponins, flat likely secondary to ESRD History of CAD status post CABG x 3 Hypertension Hyperlipidemia ESRD on hemodialysis -Cardiology following, reviewed documentation in chart -Continue heparin infusion at 12 units/kg/h with repeat PTT every 6 hours to monitor for goal therapeutic range of 44 to 79 seconds. Currently PTT therapeutic at 50.3. -Telemetry monitoring -Troponins were trended and flat resulting at 0.052, 0.055, 0.054. -Cardiac diet, NPO at midnight -Continue aspirin 81 mg daily, amiodarone 200 mg daily, atorvastatin 40 mg nightly, carvedilol 3.125 mg twice daily with meals, and PRN midodrine 10 mg every 8 hours as needed for hypotension with systolic pressure less than 100. -Obtain records from [facility]. -Consult placed to nephrology for management of dialysis -Awaiting echocardiogram to be completed Data and imaging reviewed: Morning labs reviewed. CBC showing macrocytic anemia with hemoglobin of 7.9 and MCV of 109.2. PTT therapeutic at 50.3. BMP consistent with ESRD and need for dialysis with BUN of 48, creatinine 7.05, and GFR of 7. Magnesium 2.0.Troponins were trended and flat resulting at 0.052, 0.055, 0.054. Vital signs reviewed. Blood pressure 178/53, heart rate 68, respiratory rate 20, temp 98.3 F, and SpO2 of 96% on 2 L per CODE STATUS: Full code DVT prophylaxis: Heparin Anticipated discharge date: Pending clinical course Anticipated discharge place: Pending clinical course Patient was seen independently by Nurse Practitioner. This document was prepared using [email or web address] dictation software. 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 Ramesh Doyle [employer]LE[employer] rendered care for this patient independently, reviewed the findings and plan as documented in the note above. I did not physically speak with or examine the patient on this date. Objective - Vital Signs Vital signs: Vital Signs Temp 98.3 F 09/09/23 03:49 Pulse 70 09/09/23 03:49 Resp 20 09/09/23 03:49 BP 167/71 09/09/23 03:49 Pulse Ox 97 09/09/23 03:49 FiO2 Intake & Output 09/08/23 09/09/23 09/09/23 18:59 06:59 18:59 Intake Total 118 Balance 118 Weight 108.862 kg 101 kg Intake: Oral 118 Other: Voiding Method Diaper Diaper Incontinent Incontinent # Bowel Movements 1 - Labs CBC & Chem 7: 09/10/23 08:25 09/10/23 08:25 Labs: Abnormal Lab Results - Last 24 Hours (Table) 09/08/23 09/08/23 09/08/23 Range/Units 10:32 10:32 10:32 RBC 2.55 L (4.30-5.90) m/uL Hgb 8.4 L (13.0-17.5) gm/dL Hct 27.4 L (39.0-53.0) % MCV 107.3 H (80.0-100.0) fL MCHC 30.7 L (31.0-37.0) g/dL RDW 17.7 H (11.5-15.5) % Lymphocytes # 0.9 L (1.0-4.8) k/uL Macrocytosis Marked A APTT (22.0-30.0) sec Carbon Dioxide 35 H (22-30) mmol/L BUN 33 H (9-20) mg/dL Creatinine 4.83 H (0.66-1.25) mg/dL POC Glucose (mg/dL) (70-110) mg/dL Troponin I 0.052 H* (0.000-0.034) ng/mL Total Protein 6.2 L (6.3-8.2) g/dL 09/08/23 09/08/23 09/08/23 Range/Units 13:33 18:40 18:40 RBC (4.30-5.90) m/uL Hgb (13.0-17.5) gm/dL Hct (39.0-53.0) % MCV (80.0-100.0) fL MCHC (31.0-37.0) g/dL RDW (11.5-15.5) % Lymphocytes # (1.0-4.8) k/uL Macrocytosis APTT 51.8 H (22.0-30.0) sec Carbon Dioxide (22-30) mmol/L BUN (9-20) mg/dL Creatinine (0.66-1.25) mg/dL POC Glucose (mg/dL) (70-110) mg/dL Troponin I 0.055 H* 0.054 H* (0.000-0.034) ng/mL Total Protein (6.3-8.2) g/dL 09/08/23 Range/Units 20:05 RBC (4.30-5.90) m/uL Hgb (13.0-17.5) gm/dL Hct (39.0-53.0) % MCV (80.0-100.0) fL MCHC (31.0-37.0) g/dL RDW (11.5-15.5) % Lymphocytes # (1.0-4.8) k/uL Macrocytosis APTT (22.0-30.0) sec Carbon Dioxide (22-30) mmol/L BUN (9-20) mg/dL Creatinine (0.66-1.25) mg/dL POC Glucose (mg/dL) 121 H (70-110) mg/dL Troponin I (0.000-0.034) ng/mL Total Protein (6.3-8.2) g/dL
--- NOTE | 2023-09-09 14:19 | P.PN ---
Subjective Progress Note Date: 09/09/23 Reason for Consult (text): Non-ST elevated myocardial infarction History of present illness: This is a 73-year-old male patient with history of coronary artery disease with CABG 3 months ago, history of end-stage renal disease, tracheostomy, paroxysmal atrial fibrillation, COPD, diabetes mellitus type 2, benign prostatic hypertrophy, hypertension, hyperlipidemia, obstructive sleep apnea history of PEG tube, anemia of chronic kidney disease. We have been asked to evaluate the patient for non-ST elevated myocardial infarction. Patient gives history that in [place] 3 months ago he had CABG surgery. He is unable to give much other detail. He is currently at [facility]. Patient denies having history of heart failure and has never been diagnosed with PR. He denies COPD. He denies lower extremity edema. No nausea or vomiting. No blood in his urine or stool. He denies having stroke or seizure. He states he has been brought i nto the hospital due to shortness of breath. His last dialysis was on Tuesday. He states he was at dialysis when he developed shortness of breath and was brought in. No chest pain, tightness or chest pressure. He does have a cough with sputum production. Patient has been started on a heparin drip. Patient is seen today in the emergency center waiting for bed on the cardiac stepdown unit. He EKG: Sinus rhythm with no acute ST-T wave changes. Chest x-ray: Persistent pulmonary venous congestion without overt failure. Overall stable chest. Left basilar effusion with atelectasis and/or infiltrate. Laboratory studies: WBC 5.4, hemoglobin 8.4, platelet count 198. INR is 1. Sodium 140, potassium 4, BUN 33 creatinine 4.83. Troponin 0.052 and 0.055. proBNP 25,200. Home cardiac medications: Amiodarone 200 mg daily, aspirin 81 mg daily, atorvastatin 40 mg at bedtime, Coreg 3.125 mg twice daily, heparin 5000 units subcu every 12 hours, Nitrostat as needed. 09/09 CABG report has been obtained from [facility]. Patient underwent CABG on 04/28/2023 with bypass graft x 2 with saphenous vein graft to the LAD, saphenous vein graft to the terminal circumflex coronary artery. Patient is seen today in follow-up on the cardiac stepdown unit. He is on a heparin drip. His blood pressure readings remain elevated, 167/71. Heart rate in the 70s, pulse ox 97% on 3 L nasal cannula. Patient denies having any chest pain. Repeat blood work reveals hemoglobin 7.9. BUN 48 creatinine 7.05. Potassium 4.7 and magnesium 2. TSH 3.43. Echocardiogram is pending. Physical examination: Gen: This is a 73-year-old male in no acute distress VS: reviewed HEENT: Head is atraumatic, normocephalic. Pupils equal, round. Sclerae is anicteric. NECK: Supple. No JVD. + Trach LUNGS: Clear to auscultation. No wheezes or rhonchi. No intercostal retractions. HEART: Regular rate and rhythm. No murmur. ABDOMEN: Soft No tenderness. + PEG tube EXTREMITIES: No pedal edema. No calf tenderness. NEUROLOGICAL: Patient is awake, alert and oriented x3. Assessment: Elevated troponin secondary to end-stage renal disease, NO myocardial injury or ischemia End-stage renal disease on hemodialysis History of trach Coronary artery disease with previous CABG, patient states at [facility] 04/28/2023 Paroxysmal atrial fibrillation not on anticoagulation COPD Diabetes mellitus type 2 Hypertension Hyperlipidemia Plan: Continue patient's home cardiac medications Obtain 2-D echocardiogram and Doppler study to assess cardiac structure and function Further recommendations to follow based upon clinical course Nurse practitioner note has been reviewed, I agree with documented findings and plan of care. Patient was seen and examined. Objective - Vital Signs Vital signs: Vital Signs Temp 98.3 F 09/09/23 03:49 Pulse 76 09/09/23 09:28 Resp 20 09/09/23 03:49 BP 167/71 09/09/23 03:49 Pulse Ox 97 09/09/23 03:49 FiO2 Intake & Output 09/08/23 09/09/23 09/09/23 18:59 06:59 18:59 Intake Total 118 Balance 118 Weight 108.862 kg 101 kg Intake: Oral 118 Other: Voiding Method Diaper Diaper Incontinent Incontinent # Bowel Movements 1 - Labs CBC & Chem 7: 09/09/23 08:15 09/09/23 08:15 Labs: Abnormal Lab Results - Last 24 Hours (Table) 09/08/23 09/08/23 09/08/23 Range/Units 10:32 10:32 10:32 RBC 2.55 L (4.30-5.90) m/uL Hgb 8.4 L (13.0-17.5) gm/dL Hct 27.4 L (39.0-53.0) % MCV 107.3 H (80.0-100.0) fL MCHC 30.7 L (31.0-37.0) g/dL RDW 17.7 H (11.5-15.5) % Lymphocytes # 0.9 L (1.0-4.8) k/uL Macrocytosis Marked A APTT (22.0-30.0) sec Carbon Dioxide 35 H (22-30) mmol/L BUN 33 H (9-20) mg/dL Creatinine 4.83 H (0.66-1.25) mg/dL POC Glucose (mg/dL) (70-110) mg/dL Troponin I 0.052 H* (0.000-0.034) ng/mL Total Protein 6.2 L (6.3-8.2) g/dL 09/08/23 09/08/23 09/08/23 Range/Units 13:33 18:40 18:40 RBC (4.30-5.90) m/uL Hgb (13.0-17.5) gm/dL Hct (39.0-53.0) % MCV (80.0-100.0) fL MCHC (31.0-37.0) g/dL RDW (11.5-15.5) % Lymphocytes # (1.0-4.8) k/uL Macrocytosis APTT 51.8 H (22.0-30.0) sec Carbon Dioxide (22-30) mmol/L BUN (9-20) mg/dL Creatinine (0.66-1.25) mg/dL POC Glucose (mg/dL) (70-110) mg/dL Troponin I 0.055 H* 0.054 H* (0.000-0.034) ng/mL Total Protein (6.3-8.2) g/dL 09/08/23 Range/Units 20:05 RBC (4.30-5.90) m/uL Hgb (13.0-17.5) gm/dL Hct (39.0-53.0) % MCV (80.0-100.0) fL MCHC (31.0-37.0) g/dL RDW (11.5-15.5) % Lymphocytes # (1.0-4.8) k/uL Macrocytosis APTT (22.0-30.0) sec Carbon Dioxide (22-30) mmol/L BUN (9-20) mg/dL Creatinine (0.66-1.25) mg/dL POC Glucose (mg/dL) 121 H (70-110) mg/dL Troponin I (0.000-0.034) ng/mL Total Protein (6.3-8.2) g/dL
[2023-09-09 15:26] LABS: % Iron Saturation 40.22 (15.00-50.00)
[2023-09-09 16:13] LABS: Glucose,Whole Blood 119 mg/dL (70-110)
[2023-09-09] MEDS: carvediloL 6.25 MG TAB PO SCH (18:38)
--- NOTE | 2023-09-09 18:41 | CA ---
Transthoracic Echo Report Name: Thomas Sage Age: 73 Gender: M : 1950 Exam Date: 09/09/2023 13:45 Exam Location: [place] [facility] Ht (in): 69 Wt (lb): 222 Ordering Physician: Trini Kruse Attending/Referring Phys: [id number], Uriah Fence Laborer Ping Ortiz RDCS Procedure CPT: Indications: LVF Cardiac Hx: Technical Quality: Technically difficult study Contrast 1: Total Dose (mL): Contrast 2: Total Dose (mL): MEASUREMENTS (Male / Female) Normal Values 2D ECHO LV Diastolic Diameter PLAX 4.3 cm 4.2 - 5.9 / 3.9 - 5.3 cm LV Systolic Diameter PLAX 1.9 cm IVS Diastolic Thickness 1.4 cm 0.6 - 1.0 / 0.6 - 0.9 cm LVPW Diastolic Thickness 1.5 cm 0.6 - 1.0 / 0.6 - 0.9 cm LV Relative Wall Thickness 0.7 RV Internal Dim ED PLAX 2.4 cm LVOT Diameter 2.2 cm LA Systolic Diameter LX 4.0 cm 3.0 - 4.0 / 2.7 - 3.8 cm LV Diastolic Volume MOD BP 84.5 cm??? 67 - 155 / 56 - 104 cm??? LV Systolic Volume MOD BP 37.4 cm??? 22 - 58 / 19 - 49 cm??? LV Ejection Fraction MOD BP 55.7 % >= 55 % LV Cardiac Index MOD BP 1590.3 cm???/min???m??? LV Diastolic Volume MOD 4C 69.3 cm??? LV Systolic Volume MOD 4C 32.0 cm??? LV Ejection Fraction MOD 4C 53.8 % LV Cardiac Index MOD 4C 1259.9 cm???/min???m??? LV Diastolic Length 4C 7.0 cm LV Systolic Length 4C 5.8 cm LV Diastolic Volume MOD 2C 88.2 cm??? LV Systolic Volume MOD 2C 33.0 cm??? LV Ejection Fraction MOD 2C 62.6 % LV Cardiac Index MOD 2C 1867.4 cm???/min???m??? LV Diastolic Length 2C 8.2 cm LV Systolic Length 2C 7.8 cm LA Volume 84.7 cm??? 18 - 58 / 22 - 52 cm??? LA Volume Index 37.7 cm???/m??? 16 - 28 cm???/m??? M-MODE Aortic Root Diameter MM 4.0 cm LA Systolic Diameter MM 2.9 cm LA Ao Ratio MM 0.7 AV Cusp Separation MM 1.6 cm DOPPLER AV Peak Velocity 261.9 cm/s AV Peak Gradient 27.4 mmHg AV Mean Velocity 187.4 cm/s AV Mean Gradient 15.7 mmHg AV Velocity Time Integral 60.2 cm MV Area PHT 2.1 cm??? Mitral E Point Velocity 109.9 cm/s Mitral A Point Velocity 119.5 cm/s Mitral E to A Ratio 0.9 MV Deceleration Time 352.9 ms TR Peak Velocity 234.0 cm/s TR Peak Gradient 21.9 mmHg Right Ventricular Systolic Press 26.9 mmHg FINDINGS Left Ventricle Left ventricular ejection fraction is estimated at 55-60 %. Moderately increased septal wall thickness. Left ventricular cavity size normal. No obvious regional wall motion abnormalities. Right Ventricle Normal right ventricular size and function. Right ventricular systolic pressure within normal limits. Right Atrium Right atrium not well visualized. Left Atrium Moderately increased left atrial volume. Mildly increased left atrial area. Mitral Valve Structurally normal mitral valve. Mitral valve thickened. Moderate mitral annular calcification. Trace to mild mitral regurgitation. No mitral stenosis. Aortic Valve Mild aortic stenosis with a peak gradient of 27 mmHg and a mean gradient of 15 mmHg. Tricuspid Valve Structurally normal tricuspid valve. Trace to mild tricuspid regurgitation. Pulmonic Valve Structurally normal pulmonic valve. Trace pulmonic regurgitation. Pericardium Left pleural effusion. No pericardial effusion. Aorta Mildly dilated aortic annulus. CONCLUSIONS Normal biventricular dimensions and systolic function Aortic sclerosis with mild aortic stenosis Mitral annular calcification Previewed by: Dr. Satya Dykes MD (Electronically Signed) Final Date: 09 September 2023 18:40
[2023-09-09 20:05] LABS: Glucose,Whole Blood 127 mg/dL (70-110)
[2023-09-10 06:00] LABS: Glucose,Whole Blood 95 mg/dL (70-110)
[2023-09-10 09:00] LABS: African American GFR (CKD) 6 (>60 ml/min/1.73 sqM); Anion Gap 8 mmol/L; Blood Urea Nitrogen 55 mg/dL (9-20); Calcium 9.6 mg/dL (8.4-10.2); Carbon Dioxide 30 mmol/L (22-30); Chloride 99 mmol/L (98-107); Glucose 152 mg/dL (74-99); Magnesium 1.9 mg/dL (1.6-2.3); Non-African American GFR(CKD) 6 (>60 ml/min/1.73 sqM); Potassium 4.6 mmol/L (3.5-5.1); Sodium 137 mmol/L (137-145)
[2023-09-10 09:23] LABS: Anisocytosis Slight; HCT 26.1 % (39.0-53.0); HGB 7.9 gm/dL (13.0-17.5); Hypochromasia Moderate; MCH 33.3 pg (25.0-35.0); MCHC 30.4 g/dL (31.0-37.0); MCV 109.5 fL (80.0-100.0); Macrocytosis Marked; Mean Platelet Volume 7.1; Platelet Count 193 k/uL (150-450); RBC 2.38 m/uL (4.30-5.90); RDW 17.8 % (11.5-15.5); WBC 5.5 k/uL (3.8-10.6)
[2023-09-10 11:23] LABS: Glucose,Whole Blood 150 mg/dL (70-110)
--- NOTE | 2023-09-10 12:19 | P.PN ---
Subjective patient is seen for follow-up for end-stage renal disease. No significant complaints today. Scheduled for hemodialysis today. Objective - Vital Signs Vital signs: Vital Signs Temp 98.2 F 09/10/23 08:00 Pulse 76 09/10/23 08:16 Resp 16 09/10/23 08:00 BP 173/74 09/10/23 08:00 Pulse Ox 94 L 09/10/23 08:00 FiO2 Intake & Output 09/09/23 09/10/23 09/10/23 18:59 06:59 18:59 Intake Total 358 100 Output Total 0 0 Balance 358 0 100 Weight 97.5 kg Intake: Oral 358 100 Output: Urine 0 0 Other: Voiding Method Diaper Diaper Diaper Incontinent Incontinent Incontinent - Exam patient is awake, comfortable, no acute distress. Examination of the heart S1 and S2 Examination of the lungs bilateral breath sounds are heard Abdomen is soft nontender Examination of lower extremity shows no significant edema. - Labs CBC & Chem 7: 09/10/23 08:25 09/10/23 08:25 Labs: Abnormal Lab Results - Last 24 Hours (Table) 09/09/23 09/09/23 09/09/23 Range/Units 08:15 16:12 20:03 RBC (4.30-5.90) m/uL Hgb (13.0-17.5) gm/dL Hct (39.0-53.0) % MCV (80.0-100.0) fL MCHC (31.0-37.0) g/dL RDW (11.5-15.5) % Macrocytosis BUN (9-20) mg/dL Creatinine (0.66-1.25) mg/dL Glucose (74-99) mg/dL POC Glucose (mg/dL) 119 H 127 H (70-110) mg/dL TIBC 179 L (228-460) UG/DL Transferrin 128.0 L (204.0-354.0) mg/dL Ferritin 4011.0 H (22.0-322.0) ng/mL 09/10/23 09/10/23 09/10/23 Range/Units 08:25 08:25 11:21 RBC 2.38 L (4.30-5.90) m/uL Hgb 7.9 L (13.0-17.5) gm/dL Hct 26.1 L (39.0-53.0) % MCV 109.5 H (80.0-100.0) fL MCHC 30.4 L (31.0-37.0) g/dL RDW 17.8 H (11.5-15.5) % Macrocytosis Marked A BUN 55 H (9-20) mg/dL Creatinine 8.57 H* (0.66-1.25) mg/dL Glucose 152 H (74-99) mg/dL POC Glucose (mg/dL) 150 H (70-110) mg/dL TIBC (228-460) UG/DL Transferrin (204.0-354.0) mg/dL Ferritin (22.0-322.0) ng/mL Assessment and Plan Assessment: 1. End-stage renal disease maintained on hemodialysis on Tuesday schedule. 2. Coronary disease status post CABG. 3. Chest pain. Cardiology following. 4. Chronic tracheostomy and PEG tube. PEG tube not being used. Tolerating oral intake. 5. Anemia of chronic kidney disease. 6. Diabetes mellitus. Plan: hemodialysis today. Add Rene
--- NOTE | 2023-09-10 13:17 | P.PN ---
Subjective HISTORY OF PRESENT ILLNESS: This is a 73-year-old male patient with history of coronary artery disease with CABG 3 months ago, history of end-stage renal disease, tracheostomy, paroxysmal atrial fibrillation, COPD, diabetes mellitus type 2, benign prostatic hypertrophy, hypertension, hyperlipidemia, obstructive sleep apnea history of PEG tube, anemia of chronic kidney disease. We have been asked to evaluate the patient for non-ST elevated myocardial infarction. Patient gives history that in [place] 3 months ago he had CABG surgery. He is unable to give much other detail. He is currently at [facility]. Patient denies having history of heart failure and has never been diagnosed with MO. He denies COPD. He denies lower extremity edema. No nausea or vomiting. No blood in his urine or stool. He denies having stroke or seizure. He states he has been brought into the hospital due to shortness of breath. His last dialysis was on Tuesday. He states he was at dialysis when he developed shortness of breath and was bro ught in. No chest pain, tightness or chest pressure. He does have a cough with sputum production. Patient has been started on a heparin drip. Patient is seen today in the emergency center waiting for bed on the cardiac stepdown unit. He EKG: Sinus rhythm with no acute ST-T wave changes. Chest x-ray: Persistent pulmonary venous congestion without overt failure. Overall stable chest. Left basilar effusion with atelectasis and/or infiltrate. Laboratory studies: WBC 5.4, hemoglobin 8.4, platelet count 198. INR is 1. Sodium 140, potassium 4, BUN 33 creatinine 4.83. Troponin 0.052 and 0.055. proBNP 25,200. Home cardiac medications: Amiodarone 200 mg daily, aspirin 81 mg daily, atorvast atin 40 mg at bedtime, Coreg 3.125 mg twice daily, heparin 5000 units subcu every 12 hours, Nitrostat as needed. 09/08 CABG report has been obtained from [facility]. Patient underwent CABG on 04/28/2023 with bypass graft x 2 with saphenous vein graft to the LAD, saphenous vein graft to the terminal circumflex coronary artery. Patient is seen today in follow-up on the cardiac stepdown unit. He is on a heparin drip. His blood pressure readings remain elevated, 167/71. Heart rate in the 70s, pulse ox 97% on 3 L nasal cannula. Patient denies having any chest pain. Repeat blood work reveals hemoglobin 7.9. BUN 48 creatinine 7.05. Potassium 4.7 and magnesium 2. TSH 3.43. Echocardiogram is pending. 09/10/2023 Patient examined this morning at the bedside. Patient is currently sleeping at the time of examination and appears comfortable. Patient without complaints of chest pain or shortness of breath. Patient's blood pressure is elevated this morning with a systolic between [id number]. Echocardiogram completed revealing ejection fraction 55 to 60%, trace to mild MR, trace to mild TR. PHYSICAL EXAM: VITAL SIGNS: Reviewed. GENERAL: Well-developed in no acute distress. NECK: Supple. No JVD or thyromegaly. + Trach LUNGS: Respirations even and unlabored. Lungs essentially clear to auscultation bilaterally. HEART: Regular rate and rhythm. S1 and S2 heard. ABDOMEN: + PEG tube EXTREMITIES: Normal range of motion. No clubbing or cyanosis. Peripheral pulses intact. No lower extremity edema ASSESSMENT: End-stage renal disease on hemodialysis Chronically elevated troponin secondary to end-stage renal disease History of tracheostomy placement Coronary artery disease with previous CABG x 2 vessels, SVG to LAD and SVG to circumflex Paroxysmal atrial fibrillation, not on anticoagulation for unknown reason COPD Diabetes mellitus type 2 Hypertension Hyperlipidemia Anemia of chronic disease due to CKD PLAN: Discontinue Nitropaste Increase carvedilol to 12.5 mg twice a day Continue additional cardiac medications Continue to monitor blood pressure Re-eval fpc anticoagulation on an outpatient basis. Unclear if patient's history of atrial fibrillation was related to his CABG or not. Further recommendations pending patient course Nurse practitioner note has been reviewed by physician. Signing provider agrees with the documented findings, assessment, and plan of care documented by [employer] as a scribe. Objective - Vital Signs Vital signs: Vital Signs Temp 98.2 F 09/10/23 08:00 Pulse 76 09/10/23 08:16 Resp 16 09/10/23 08:00 BP 173/74 09/10/23 08:00 Pulse Ox 94 L 09/10/23 08:00 FiO2 Intake & Output 09/09/23 09/10/23 09/10/23 18:59 06:59 18:59 Intake Total 358 100 Output Total 0 0 Balance 358 0 100 Weight 97.5 kg Intake: Oral 358 100 Output: Urine 0 0 Other: Voiding Method Diaper Diaper Incontinent Incontinent - Labs CBC & Chem 7: 09/10/23 08:25 09/10/23 08:25 Labs: Abnormal Lab Results - Last 24 Hours (Table) 09/09/23 09/09/23 09/09/23 Range/Units 08:15 16:12 20:03 RBC (4.30-5.90) m/uL Hgb (13.0-17.5) gm/dL Hct (39.0-53.0) % MCV (80.0-100.0) fL MCHC (31.0-37.0) g/dL RDW (11.5-15.5) % Macrocytosis BUN (9-20) mg/dL Creatinine (0.66-1.25) mg/dL Glucose (74-99) mg/dL POC Glucose (mg/dL) 119 H 127 H (70-110) mg/dL TIBC 179 L (228-460) UG/DL Transferrin 128.0 L (204.0-354.0) mg/dL Ferritin 4011.0 H (22.0-322.0) ng/mL 09/10/23 09/10/23 Range/Units 08:25 08:25 RBC 2.38 L (4.30-5.90) m/uL Hgb 7.9 L (13.0-17.5) gm/dL Hct 26.1 L (39.0-53.0) % MCV 109.5 H (80.0-100.0) fL MCHC 30.4 L (31.0-37.0) g/dL RDW 17.8 H (11.5-15.5) % Macrocytosis Marked A BUN 55 H (9-20) mg/dL Creatinine 8.57 H* (0.66-1.25) mg/dL Glucose 152 H (74-99) mg/dL POC Glucose (mg/dL) (70-110) mg/dL TIBC (228-460) UG/DL Transferrin (204.0-354.0) mg/dL Ferritin (22.0-322.0) ng/mL
--- NOTE | 2023-09-10 14:34 | P.PN ---
Subjective Progress Note Date: 09/10/23 Hospital Course: Patient is a very pleasant 73-year-old male with a past medical history of CAD status post CABG x 3 in April 2023 at [facility], tracheostomy, paroxysmal atrial fibrillation, hypertension, hyperlipidemia, and ESRD on hemodialysis. Patient presented to our facility with a chief complaint of chest pain. Patient reports he was approximately 2 and half hours into his hemodialysis session when he developed a pressure-like pain to his midsternal and left anterior chest. He reports his dialysis was stopped and EMS was called for transport to the hospital. Patient received aspirin and nitroglycerin by EMS and route to our facility and reported resolution of chest pain but returned shortly after arriving to our hospital. Patient again received sublingual nitro in the emergency department which he reports resulted in total resolution of his chest pain. Patient denies having any associated symptoms including dizziness, lightheadedness, diaphoresis, palpitations, shortness of breath, nausea, vomiting, or experiencing any numbness/tingling/weakness/increased swelling in his extremities. Upon arrival to our facility patient underwent evaluation in the emergency department. Vital signs upon arrival show blood pressure 141/76, heart rate 75, respiratory rate 16, temp 98.6 F, and SpO2 of 97% on 3 L O2 via nasal cannula. EKG was completed showing normal sinus rhythm at 75 bpm with T wave inversion in lateral lead aVL otherwise showing no noted ST abnormalities upon personal review and interpretation. Chest x-ray completed negative for acute cardiopulmonary process. Labs were completed and reviewed. CBC showing macrocytic anemia with hemoglobin of 8.4 and MCV of 107.3. Coagulation profile normal findings. BMP showing hypercarbia with bicarb of 35 and consistent with known ESRD with BUN of 33, creatinine 4.83, and GFR of 11. Blood glucose was 75. Liver profile unremarkable. Troponin was elevated at 0.052. proBNP was 25,200. Patient started on low intensity heparin infusion for treatment of unstable angina and was admitted under services with consultation to cardiology. Physical exam: Patient seen and fully evaluated at bedside this morning. Patient appeared to be resting comfortably and easily awoken via verbal stimuli. Patient denies any further episodes of chest pain/pressure or any other complaints at this time including headache, lightheadedness, dizziness, palpitations, or shortness of breath. Vital signs reviewed and stable. General: Nontoxic, no distress and appears stated age. Derm: Skin warm and dry, normal coloration for ethnicity. Head: Atraumatic, normocephalic and symmetric. Eyes: EOMs intact, no lid lag, and anicteric sclera Mouth: no lip lesions, mucus membranes moist Cardiovascular: regular rate and rhythm with normal S1S2, systolic murmur, positive posterior tibial pulses bilaterally, and cap refill < 2 seconds. AV fistula left upper extremity with bruit and thrill intact. Lungs: Respirations even, regular, and unlabored on room air. Lungs CTA bilaterally, no rhonchi, no rales, no wheezing, and no accessory muscle usage. Tracheostomy with appliance in place. Abdominal: soft, nontender to palpation, no guarding, no appreciable organomegaly Ext: ROM intact. No gross muscle atrophy, scant lower extremity edema, no contractures Neuro: Speech clear, face symmetrical and CN II-XII grossly intact with no noted focal neuro deficits Psych: Alert and oriented to person, place, time, and situation. Appropriate and pleasant affect. Assessment and Plan of Care: Unstable angina Elevated troponins, flat likely secondary to ESRD History of CAD status post CABG x 2 Hypertension Hyperlipidemia ESRD on hemodialysis -Cardiology following, reviewed documentation in chart. Cardiology discontinuing Nitropaste and increasing patient's Coreg to 12.5 mg twice daily at this time. -Telemetry monitoring -Continue aspirin 81 mg daily, amiodarone 200 mg daily, atorvastatin 40 mg nightly, carvedilol 12.5 mg twice daily with meals, and PRN midodrine 10 mg every 8 hours as needed for hypotension with systolic pressure less than 100. -Records from [facility] show patient underwent CABG x 2 on 04/28/2023 -Nephrology following and managing dialysis. Patient scheduled to undergo dialysis today. -Echocardiogram completed showing a preserved EF of 55 to 60%. Data and imaging reviewed: Morning labs reviewed. CBC showing microcytic anemia with hemoglobin of 7.9 MCV of 102.5. BMP today consistent with ESRD with BUN of 55, creatinine 8.57, and GFR of 6. Patient scheduled undergo dialysis today. Magnesium 1.9. Vital signs reviewed. Blood pressure 173/74, heart rate 87, respiratory rate 16, temp 98.2 F, and SpO2 of 94% on room air. Echocardiogram completed showing a preserved EF of 55 to 60%. CODE STATUS: Full code DVT prophylaxis: Heparin Anticipated discharge date: Pending clinical course Anticipated discharge place: Pending clinical course Patient was seen independently by Nurse Practitioner. This document was prepared using [employer] dictation software. Please allow for errors in territory development manager while rare they do occur. Ramesh Doyle ASSISTANT CENTER DIRECTOR rendered care for this patient independently, reviewed the findings and plan as documented in the note above. I did not physically speak with or examine the patient on this date. Objective - Vital Signs Vital signs: Vital Signs Temp 97.8 F 09/10/23 03:21 Pulse 76 09/10/23 08:16 Resp 18 09/10/23 03:21 BP 175/70 09/10/23 03:21 Pulse Ox 90 L 09/10/23 03:21 FiO2 Intake & Output 09/09/23 09/10/23 09/10/23 18:59 06:59 18:59 Intake Total 358 Output Total 0 0 Balance 358 0 Weight 97.5 kg Intake: Oral 358 Output: Urine 0 0 Other: Voiding Method Diaper Diaper Incontinent Incontinent - Labs CBC & Chem 7: 09/10/23 08:25 09/10/23 08:25 Labs: Abnormal Lab Results - Last 24 Hours (Table) 09/09/23 09/09/23 09/09/23 Range/Units 08:15 08:15 08:15 RBC 2.28 L (4.30-5.90) m/uL Hgb 7.9 L (13.0-17.5) gm/dL Hct 24.9 L (39.0-53.0) % MCV 109.2 H (80.0-100.0) fL RDW 18.1 H (11.5-15.5) % Macrocytosis Marked A APTT 50.3 H (22.0-30.0) sec BUN 48 H (9-20) mg/dL Creatinine 7.05 H* (0.66-1.25) mg/dL POC Glucose (mg/dL) (70-110) mg/dL TIBC (228-460) UG/DL Transferrin (204.0-354.0) mg/dL Ferritin (22.0-322.0) ng/mL Total Protein 5.9 L (6.3-8.2) g/dL Albumin 3.3 L (3.5-5.0) g/dL 09/09/23 09/09/23 09/09/23 Range/Units 08:15 16:12 20:03 RBC (4.30-5.90) m/uL Hgb (13.0-17.5) gm/dL Hct (39.0-53.0) % MCV (80.0-100.0) fL RDW (11.5-15.5) % Macrocytosis APTT (22.0-30.0) sec BUN (9-20) mg/dL Creatinine (0.66-1.25) mg/dL POC Glucose (mg/dL) 119 H 127 H (70-110) mg/dL TIBC 179 L (228-460) UG/DL Transferrin 128.0 L (204.0-354.0) mg/dL Ferritin 4011.0 H (22.0-322.0) ng/mL Total Protein (6.3-8.2) g/dL Albumin (3.5-5.0) g/dL
[2023-09-10 16:17] LABS: Glucose,Whole Blood 83 mg/dL (70-110)
[2023-09-10] MEDS: carvediloL 12.5 MG TAB PO SCH (18:02)
[2023-09-10] MEDS: DARBEPOETIN ALFA 60 MCG/0.3 ML SYRINGE SQ SCH (18:02)
[2023-09-10 19:56] LABS: Glucose,Whole Blood 92 mg/dL (70-110)
[2023-09-11 05:56] LABS: Glucose,Whole Blood 110 mg/dL (70-110)
[2023-09-11 09:03] LABS: Anisocytosis Slight; HCT 25.5 % (39.0-53.0); HGB 7.7 gm/dL (13.0-17.5); Hypochromasia Moderate; MCH 33.4 pg (25.0-35.0); MCHC 30.4 g/dL (31.0-37.0); MCV 109.8 fL (80.0-100.0); Macrocytosis Marked; Mean Platelet Volume 7.9; Platelet Count 178 k/uL (150-450); RBC 2.32 m/uL (4.30-5.90); RDW 18.1 % (11.5-15.5); WBC 5.1 k/uL (3.8-10.6)
[2023-09-11 09:29] LABS: African American GFR (CKD) 12 (>60 ml/min/1.73 sqM); Anion Gap 4 mmol/L; Blood Urea Nitrogen 27 mg/dL (9-20); Calcium 9.3 mg/dL (8.4-10.2); Carbon Dioxide 32 mmol/L (22-30); Chloride 98 mmol/L (98-107); Glucose 88 mg/dL (74-99); Non-African American GFR(CKD) 11 (>60 ml/min/1.73 sqM); Sodium 134 mmol/L (137-145)
[2023-09-11 09:55] LABS: Magnesium 1.8 mg/dL (1.6-2.3); Potassium 5.6 mmol/L (3.5-5.1)
--- NOTE | 2023-09-11 10:09 | P.PN ---
Subjective HISTORY OF PRESENT ILLNESS: This is a 73-year-old male patient with history of coronary artery disease with CABG 3 months ago, history of end-stage renal disease, tracheostomy, paroxysmal atrial fibrillation, COPD, diabetes mellitus type 2, benign prostatic hypertrophy, hypertension, hyperlipidemia, obstructive sleep apnea history of PEG tube, anemia of chronic kidney disease. We have been asked to evaluate the patient for non-ST elevated myocardial infarction. Patient gives history that in [place] 3 months ago he had CABG surgery. He is unable to give much other detail. He is currently at [facility]. Patient denies having history of heart failure and has never been diagnosed with [place]. He denies COPD. He denies lower extremity edema. No nausea or vomiting. No blood in his urine or stool. He denies having stroke or seizure. He states he has been brought into the hospital due to shortness of breath. His last dialysis was on Tuesday. He states he was at dialysis when he developed shortness of breath and was bro ught in. No chest pain, tightness or chest pressure. He does have a cough with sputum production. Patient has been started on a heparin drip. Patient is seen today in the emergency center waiting for bed on the cardiac stepdown unit. He EKG: Sinus rhythm with no acute ST-T wave changes. Chest x-ray: Persistent pulmonary venous congestion without overt failure. Overall stable chest. Left basilar effusion with atelectasis and/or infiltrate. Laboratory studies: WBC 5.4, hemoglobin 8.4, platelet count 198. INR is 1. Sodium 140, potassium 4, BUN 33 creatinine 4.83. Troponin 0.052 and 0.055. proBNP 25,200. Home cardiac medications: Amiodarone 200 mg daily, aspirin 81 mg daily, atorvast atin 40 mg at bedtime, Coreg 3.125 mg twice daily, heparin 5000 units subcu every 12 hours, Nitrostat as needed. 09/08 CABG report has been obtained from [facility]. Patient underwent CABG on 04/28/2023 with bypass graft x 2 with saphenous vein graft to the LAD, saphenous vein graft to the terminal circumflex coronary artery. Patient is seen today in follow-up on the cardiac stepdown unit. He is on a heparin drip. His blood pressure readings remain elevated, 167/71. Heart rate in the 70s, pulse ox 97% on 3 L nasal cannula. Patient denies having any chest pain. Repeat blood work reveals hemoglobin 7.9. BUN 48 creatinine 7.05. Potassium 4.7 and magnesium 2. TSH 3.43. Echocardiogram is pending. 09/10/2023 Patient examined this morning at the bedside. Patient is currently sleeping at the time of examination and appears comfortable. Patient without complaints of chest pain or shortness of breath. Patient's blood pressure is elevated this morning with a systolic between [id number]. Echocardiogram completed revealing ejection fraction 55 to 60%, trace to mild MR, trace to mild TR. 09/11/2023 Patient examined this morning at the bedside. Patient is currently eating annabel kfast. He denies any chest pain or pressure. Denies any shortness of breath. Telemetry reveals sinus mechanism in the 60s. Blood pressure stable today with a systolic between [id number]. PHYSICAL EXAM: VITAL SIGNS: Reviewed. GENERAL: Well-developed in no acute distress. NECK: Supple. No JVD or thyromegaly. + Trach LUNGS: Respirations even and unlabored. Lungs essentially clear to auscultation bilaterally. HEART: Regular rate and rhythm. S1 and S2 heard. ABDOMEN: + PEG tube EXTREMITIES: Normal range of motion. No clubbing or cyanosis. Peripheral pulses intact. No lower extremity edema ASSESSMENT: End-stage renal disease on hemodialysis Chronically elevated troponin secondary to end-stage renal disease History of tracheostomy placement Coronary artery disease with previous CABG x 2 vessels, SVG to LAD and SVG to circumflex Paroxysmal atrial fibrillation, not on anticoagulation for unknown reason COPD Diabetes mellitus type 2 Hypertension Hyperlipidemia Anemia of chronic disease due to CKD PLAN: Continue current cardiac medications Continue to monitor blood pressure Re-eval residential anticoagulation on an outpatient basis. Unclear if patient's history of atrial fibrillation was related to his CABG or not. Hemodialysis per nephrology. Currently on Tuesday schedule Further recommendations pending patient course Nurse practitioner note has been reviewed by physician. Signing provider agrees with the documented findings, assessment, and plan of care documented by HOUSEKEEPING ROOM ATTENDANT as a scribe. Objective - Vital Signs Vital signs: Vital Signs Temp 97.7 F 09/11/23 08:00 Pulse 66 09/11/23 08:00 Resp 16 09/11/23 08:00 BP 133/71 09/11/23 08:00 Pulse Ox 96 09/11/23 08:00 FiO2 Intake & Output 09/10/23 09/11/23 09/11/23 18:59 06:59 18:59 Intake Total 710 240 120 Output Total 2000 0 0 Balance -1290 240 120 Weight 94.5 kg Intake: Oral 210 240 120 Hemodialysis 500 Output: Gastric Drainage 0 Urine 0 0 Stool 0 Urine/Stool Mix 0 Emesis 0 Oral Regurgitation 0 Hemodialysis 2000 Other 0 Other: Voiding Method Diaper Diaper Incontinent Incontinent # Voids 0 # Bowel Movements 0 - Labs CBC & Chem 7: 09/11/23 08:25 09/11/23 08:25 Labs: Abnormal Lab Results - Last 24 Hours (Table) 09/10/23 09/11/23 09/11/23 Range/Units 11:21 08:25 08:25 RBC 2.32 L (4.30-5.90) m/uL Hgb 7.7 L (13.0-17.5) gm/dL Hct 25.5 L (39.0-53.0) % MCV 109.8 H (80.0-100.0) fL MCHC 30.4 L (31.0-37.0) g/dL RDW 18.1 H (11.5-15.5) % Macrocytosis Marked A Sodium 134 L (137-145) mmol/L Potassium 5.6 H (3.5-5.1) mmol/L Carbon Dioxide 32 H (22-30) mmol/L BUN 27 H (9-20) mg/dL Creatinine 5.07 H (0.66-1.25) mg/dL POC Glucose (mg/dL) 150 H (70-110) mg/dL
--- NOTE | 2023-09-11 11:19 | P.PN ---
Subjective Progress Note Date: 09/11/23 Hospital Course: Patient is a very pleasant 73-year-old male with a past medical history of CAD status post CABG x [address] [facility], tracheostomy, paroxysmal atrial fibrillation, hypertension, hyperlipidemia, and ESRD on hemodialysis. Patient presented to our facility with a chief complaint of chest pain. Patient reports he was approximately 2 and half hours into his hemodialysis session when he developed a pressure-like pain to his midsternal and left anterior chest. He reports his dialysis was stopped and EMS was called for transport to the hospital. Patient received aspirin and nitroglycerin by EMS and route to our facility and reported resolution of chest pain but returned shortly after arriving to our hospital. Patient again received sublingual nitro in the emergency department which he reports resulted in total resolution of his chest pain. Patient denies having any associated symptoms including dizziness, lightheadedness, diaphoresis, palpitations, shortness of breath, nausea, vomiting, or experiencing any numbness/tingling/weakness/increased swelling in his extremities. Upon arrival to our facility patient underwent evaluation in the emergency department. Vital signs upon arrival show blood pressure 141/76, heart rate 75, respiratory rate 16, temp 98.6 F, and SpO2 of 97% on 3 L O2 via nasal cannula. EKG was completed showing normal sinus rhythm at 75 bpm with T wave inversion in lateral lead aVL otherwise showing no noted ST abnormalities upon personal review and interpretation. Chest x-ray completed negative for acute cardiopulmonary process. Labs were completed and reviewed. CBC showing macrocytic anemia with hemoglobin of 8.4 and MCV of 107.3. Coagulation profile normal findings. BMP showing hypercarbia with bicarb of 35 and consistent with known ESRD with BUN of 33, creatinine 4.83, and GFR of 11. Blood glucose was 75. Liver profile unremarkable. Troponin was elevated at 0.052. proBNP was 25,200. Patient started on low intensity heparin infusion for treatment of unstable angina and was admitted under services with consultation to cardiology. Troponins were trended and were flat resulting at 0.052, 0.055, and 0.054. Echocardiogram completed showing a preserved EF of 55 to 60%. Physical exam: Patient seen and fully evaluated at bedside this morning. Patient appeared to be resting comfortably and easily awoken via verbal stimuli. Patient denies any further episodes of chest pain/pressure or any other complaints at this time including headache, lightheadedness, dizziness, palpitations, or shortness of breath. Vital signs reviewed and stable. General: Nontoxic, no distress and appears stated age. Derm: Skin warm and dry, normal coloration for ethnicity. Head: Atraumatic, normocephalic and symmetric. Eyes: EOMs intact, no lid lag, and anicteric sclera Mouth: no lip lesions, mucus membranes moist Cardiovascular: regular rate and rhythm with normal S1S2, systolic murmur, positive posterior tibial pulses bilaterally, and cap refill < 2 seconds. AV fistula left upper extremity with bruit and thrill intact. Lungs: Respirations even, regular, and unlabored on room air. Lungs CTA bilaterally, no rhonchi, no rales, no wheezing, and no accessory muscle usage. Tracheostomy with appliance in place. Abdominal: soft, nontender to palpation, no guarding, no appreciable organomegaly Ext: ROM intact. No gross muscle atrophy, scant lower extremity edema, no contractures Neuro: Speech clear, face symmetrical and CN II-XII grossly intact with no noted focal neuro deficits Psych: Alert and oriented to person, place, time, and situation. Appropriate and pleasant affect. Assessment and Plan of Care: Unstable angina Elevated troponins, flat likely secondary to ESRD History of CAD status post CABG x 2 Hypertension Hyperlipidemia ESRD on hemodialysis -Cardiology following, reviewed documentation in chart. Cardiology discontinuing Nitropaste and increasing patient's Coreg to 12.5 mg twice daily at this time. -Telemetry monitoring -Continue aspirin 81 mg daily, amiodarone 200 mg daily, atorvastatin 40 mg nightly, carvedilol 12.5 mg twice daily with meals, and PRN midodrine 10 mg every 8 hours as needed for hypotension with systolic pressure less than 100. -Records from [facility] show patient underwent CABG x 2 on 04/28/2023 -Nephrology following and managing dialysis. Patient's last dialysis session was 09/10/2023. -Echocardiogram completed showing a preserved EF of 55 to 60%. Data and imaging reviewed: Morning labs reviewed. CBC showing microcytic anemia with hemoglobin of 7.7 MCV of 109.8. BMP today consistent with ESRD with BUN of 27, creatinine 5.07, and GFR of 11. Magnesium 1.8. Potassium reported at 5.6 but moderately hemolyzed. Vital signs reviewed. Blood pressure 133/71, heart rate 66, respiratory rate 16, temp 97.7 F, and SpO2 of 96% on 3 L. CODE STATUS: Full code DVT prophylaxis: Heparin Anticipated discharge date: Likely tomorrow morning, awaiting insurance Auth/acceptance for patient to return to [facility] Anticipated discharge place: [facility] Patient was seen independently by Nurse Practitioner. This document was prepared using [employer] dictation software. Please allow for er rors in broach grinder while rare they do occur. . Ramesh Doyle NP rendered care for this patient independently, reviewed the findings and plan as documented in the note above. I did not physically speak with or examine the patient on this date. Objective - Vital Signs Vital signs: Vital Signs Temp 97.3 F L 09/11/23 03:30 Pulse 73 09/11/23 07:47 Resp 16 09/11/23 03:30 BP 147/72 09/11/23 03:30 Pulse Ox 97 09/11/23 03:30 FiO2 Intake & Output 09/10/23 09/11/23 09/11/23 18:59 06:59 18:59 Intake Total 710 240 Output Total 2000 0 Balance -1290 240 Weight 94.5 kg Intake: Oral 210 240 Hemodialysis 500 Output: Urine 0 Hemodialysis 2000 Other: Voiding Method Diaper Diaper Incontinent Incontinent - Labs CBC & Chem 7: 09/12/23 08:54 09/12/23 08:54 Labs: Abnormal Lab Results - Last 24 Hours (Table) 09/10/23 09/10/23 09/10/23 Range/Units 08:25 08:25 11:21 RBC 2.38 L (4.30-5.90) m/uL Hgb 7.9 L (13.0-17.5) gm/dL Hct 26.1 L (39.0-53.0) % MCV 109.5 H (80.0-100.0) fL MCHC 30.4 L (31.0-37.0) g/dL RDW 17.8 H (11.5-15.5) % Macrocytosis Marked A BUN 55 H (9-20) mg/dL Creatinine 8.57 H* (0.66-1.25) mg/dL Glucose 152 H (74-99) mg/dL POC Glucose (mg/dL) 150 H (70-110) mg/dL
[2023-09-11 11:27] LABS: Glucose,Whole Blood 112 mg/dL (70-110)
[2023-09-11] MEDS: THIAMINE 100 MG TAB PO SCH (11:47)
[2023-09-11] MEDS: FOLIC ACID 1 MG TAB PO SCH (11:47)
--- NOTE | 2023-09-11 12:50 | P.PN ---
Subjective patient is seen for follow-up for end-stage renal disease. No significant complaints today. status post hemodialysis yesterday with UF of 2 L. Objective - Vital Signs Vital signs: Vital Signs Temp 97.7 F 09/11/23 08:00 Pulse 75 09/11/23 11:56 Resp 16 09/11/23 11:50 BP 118/56 09/11/23 11:50 Pulse Ox 94 L 09/11/23 11:50 FiO2 Intake & Output 09/10/23 09/11/23 09/11/23 18:59 06:59 18:59 Intake Total 710 240 120 Output Total 2000 0 0 Balance -1290 240 120 Weight 94.5 kg Intake: Oral 210 240 120 Hemodialysis 500 Output: Gastric Drainage 0 Urine 0 0 Stool 0 Urine/Stool Mix 0 Emesis 0 Oral Regurgitation 0 Hemodialysis 2000 Other 0 Other: Voiding Method Diaper Diaper Diaper Incontinent Incontinent Incontinent # Voids 0 # Bowel Movements 0 - Exam patient is awake, comfortable, no acute distress. Examination of the heart S1 and S2 Examination of the lungs bilateral breath sounds are heard Abdomen is soft nontender Examination of lower extremity shows no significant edema. - Labs CBC & Chem 7: 09/11/23 08:25 09/11/23 08:25 Labs: Abnormal Lab Results - Last 24 Hours (Table) 09/11/23 09/11/23 09/11/23 Range/Units 08:25 08:25 11:26 RBC 2.32 L (4.30-5.90) m/uL Hgb 7.7 L (13.0-17.5) gm/dL Hct 25.5 L (39.0-53.0) % MCV 109.8 H (80.0-100.0) fL MCHC 30.4 L (31.0-37.0) g/dL RDW 18.1 H (11.5-15.5) % Macrocytosis Marked A Sodium 134 L (137-145) mmol/L Potassium 5.6 H (3.5-5.1) mmol/L Carbon Dioxide 32 H (22-30) mmol/L BUN 27 H (9-20) mg/dL Creatinine 5.07 H (0.66-1.25) mg/dL POC Glucose (mg/dL) 112 H (70-110) mg/dL Assessment and Plan Assessment: 1. End-stage renal disease maintained on hemodialysis on Tuesday schedule. 2. Coronary disease status post CABG. 3. Chest pain. Cardiology following. 4. Chronic tracheostomy and PEG tube. PEG tube not being used. Tolerating oral intake. 5. Anemia of chronic kidney disease. 6. Diabetes mellitus. Plan: hemodialysis on a Tuesday schedule continue [facility]
[2023-09-11 16:37] LABS: Glucose,Whole Blood 103 mg/dL (70-110)
[2023-09-11 20:10] LABS: Glucose,Whole Blood 99 mg/dL (70-110)
[2023-09-11] MEDS: cloNIDine HCL 0.2 MG TAB PO PRN (21:23)
[2023-09-12 05:33] LABS: Glucose,Whole Blood 117 mg/dL (70-110)
[2023-09-12 09:05] VITALS: RESP 18; TEMP 97.5
[2023-09-12 09:17] LABS: Anisocytosis Slight; HCT 25.8 % (39.0-53.0); HGB 7.8 gm/dL (13.0-17.5); Hypochromasia Moderate; MCH 33.6 pg (25.0-35.0); MCHC 30.3 g/dL (31.0-37.0); MCV 110.8 fL (80.0-100.0); Macrocytosis Marked; Mean Platelet Volume 7.2; Platelet Count 182 k/uL (150-450); RBC 2.33 m/uL (4.30-5.90); RDW 18.2 % (11.5-15.5); WBC 5.6 k/uL (3.8-10.6)
[2023-09-12 09:47] LABS: ALT 11 U/L (4-49); AST 21 U/L (17-59); African American GFR (CKD) 8 (>60 ml/min/1.73 sqM); Alkaline Phosphatase 90 U/L (38-126); Anion Gap 8 mmol/L; Blood Urea Nitrogen 37 mg/dL (9-20); Calcium 9.6 mg/dL (8.4-10.2); Carbon Dioxide 28 mmol/L (22-30); Chloride 99 mmol/L (98-107); Glucose 91 mg/dL (74-99); Magnesium 1.8 mg/dL (1.6-2.3); Non-African American GFR(CKD) 7 (>60 ml/min/1.73 sqM); Potassium 4.8 mmol/L (3.5-5.1); Sodium 135 mmol/L (137-145); Total Bilirubin 0.6 mg/dL (0.2-1.3); Total Protein 5.4 g/dL (6.3-8.2)
--- NOTE | 2023-09-12 10:46 | P.DS ---
Providers Date of admission: 09/08/23 11:44 Expected date of discharge: 09/12/23 Attending physician: Eber Belle MD Consults: 09/08/23 11:43 Consult Physician Routine Consulting Provider: [facility] Consult Reason/Comments: [email or web address] Do you want consulting provider notified?: Yes 09/08/23 11:46 Consult Physician Routine Consulting Provider: Davion Bell Consult Reason/Comments: ESRD, on dialysis sent from dialysis center d/t CP Do you want consulting provider notified?: Yes Primary care physician: Physician Nonstaff Hospital Course: Discharge Diagnosis: Unstable angina Elevated troponins, flat likely secondary to ESRD History of CAD status post CABG x 2 Hypertension Hyperlipidemia ESRD on hemodialysis Hospital Course: Patient is a very pleasant 73-year-old male with a past medical history of CAD status post CABG x [address] [facility], tracheostomy, paroxysmal atrial fibrillation, hypertension, hyperlipidemia, and ESRD on hemodialysis. Patient presented to our facility with a chief complaint of chest pain. Patient reports he was approximately 2 and half hours into his hemodialysis session when he developed a pressure-like pain to his midsternal and left anterior chest. He reports his dialysis was stopped and EMS was called for transport to the hospital. Patient received aspirin and nitroglycerin by EMS and route to our facility and reported resolution of chest pain but returned shortly after arriving to our hospital. Patient again received sublingual nitro in the emergency department which he reports resulted in total resolution of his chest pain. Patient denies having any associated symptoms including dizziness, lightheadedness, diaphoresis, palpitations, shortness of breath, nausea, vomiting, or experiencing any numbness/tingling/weakness/increased swelling in his extremities. Upon arrival to our facility patient underwent evaluation in the emergency department. Vital signs upon arrival show blood pressure 141/76, heart rate 75, respiratory rate 16, temp 98.6 F, and SpO2 of 97% on 3 L O2 via nasal cannula. EKG was completed showing normal sinus rhythm at 75 bpm with T wave inversion in lateral lead aVL otherwise showing no noted ST abnormalities upon personal review and interpretation. Chest x-ray completed negative for acute cardiopulmonary process. Labs were completed and reviewed. CBC showing macrocytic anemia with hemoglobin of 8.4 and MCV of 107.3. Coagulation profile normal findings. BMP showing hypercarbia with bicarb of 35 and consistent with known ESRD with BUN of 33, creatinine 4.83, and GFR of 11. Blood glucose was 75. Liver profile unremarkable. Troponin was elevated at 0.052. proBNP was 25,200. Patient started on low intensity heparin infusion for treatment of unstable angina and was admitted under services with consultation to cardiology. Troponins were trended and were flat resulting at 0.052, 0.055, and 0.054. Echocardiogram completed showing a preserved EF of 55 to 60%.. Patient was evaluated by cardiology and nephrology. Cardiology recommending patient to be reevaluated on long-term anticoagulation on outpatient basis. Nephrology recommending continuation of hemodialysis Tuesdays/, and Saturdays and continuation of Aranesp 60 mcg every 7 days. Medically, patient is stable at this time and has been cleared by cardiology and nephrology. He is being discharged back to [facility] Physical exam: Patient seen and fully evaluated at bedside this morning. Patient continues to deny having any further episodes of chest pain/pressure denies having any other complaints at this time including headache, lightheadedness, dizziness, palpitations, or shortness of breath. Vital signs reviewed and stable. General: Nontoxic, no distress and appears stated age. Derm: Skin warm and dry, normal coloration for ethnicity. Head: Atraumatic, normocephalic and symmetric. Eyes: EOMs intact, no lid lag, and anicteric sclera Mouth: no lip lesions, mucus membranes moist Cardiovascular: regular rate and rhythm with normal S1S2, systolic murmur, positive posterior tibial pulses bilaterally, and cap refill < 2 seconds. AV fistula left upper extremity with bruit and thrill intact. Lungs: Respirations even, regular, and unlabored on room air. Lungs CTA bilaterally, no rhonchi, no rales, no wheezing, and no accessory muscle usage. Tracheostomy with appliance in place. Abdominal: soft, nontender to palpation, no guarding, no appreciable organomegaly Ext: ROM intact. No gross muscle atrophy, scant lower extremity edema, no contractures Neuro: Speech clear, face symmetrical and CN II-XII grossly intact with no noted focal neuro deficits Psych: Alert and oriented to person, place, time, and situation. Appropriate and pleasant affect. A total of 35 minutes of time were spent preparing this complex discharge summary. Pt was discharged on 09/12/23 at 10:35 AM. Patient was seen independently by Nurse Practitioner. This document was prepared using [employer] dictation software. Please allow for errors in pc technician while rare they do occur. .Ramesh Doyle NP rendered care for this patient independently, reviewed the findings and plan as documented in the note above. I did not physically speak with or examine the patient on this date. Patient Condition at Discharge: Stable Plan - Discharge Summary Discharge Rx Participant: No New Discharge Prescriptions: New Darbepoetin Tiburcio [Aranesp] 60 mcg SQ Q7D each Folic Acid 1 mg PO DAILY 30 Days #30 tab Thiamine [Vitamin B-1] 100 mg PO DAILY 30 Days #30 tab carvediloL [Coreg*] 12.5 mg PO BID-W/MEALS tab Continue QUEtiapine [SEROquel] 100 mg PO HS Midodrine HCl [ProAmatine] 10 mg PO Q8H PRN PRN Reason: Hypotension-SBP <100 hydrOXYzine HCL [Atarax] 25 mg PO Q8H PRN PRN Reason: ITCHING/RASH Famotidine [Pepcid] 20 mg PO Q2D bisacodyL [Dulcolax] 10 mg RECTAL DAILY PRN PRN Reason: Constipation Docusate [Colace] 100 mg PO DAILY Atorvastatin [Lipitor] 40 mg PO HS Aspirin EC [Ecotrin Low Dose] 81 mg PO DAILY Amiodarone [Cordarone] 200 mg PO DAILY Acetaminophen [Tylenol] 650 mg PEG/G-TUBE Q8H traMADol HCL 50 mg PO Q6H PRN #12 tab PRN Reason: Pain QUEtiapine [SEROquel] 50 mg PO DAILY Nitroglycerin Sl Tabs [Nitrostat] 0.4 mg SUBLINGUAL Q5M PRN PRN Reason: Chest Pain polyethylene glycoL 3350 [Miralax] 17 gm PO DAILY PRN PRN Reason: Constipation Melatonin 6 mg PO HS Ipratropium-Albuterol Nebulize [Duoneb 0.5 mg-3 mg/3 ml Soln] 3 ml INHALATION RT-Q4H Insulin Lispro [humaLOG Kwikpen] See Protocol SQ ACHS Heparin Sodium,Porcine (1 ml) [Heparin Sodium] 5,000 unit SQ Q12HR Acetaminophen [Tylenol 8 Hour] 650 mg PO Q6H PRN PRN Reason: Pain Discontinued carvediloL [Coreg] 3.125 mg PO BID Discharge Medication List Acetaminophen [Tylenol 8 Hour] 650 mg PO Q6H PRN 09/08/23 [History] Acetaminophen [Tylenol] 650 mg PEG/G-TUBE Q8H 09/08/23 [History] Amiodarone [Cordarone] 200 mg PO DAILY 09/08/23 [History] Aspirin EC [Ecotrin Low Dose] 81 mg PO DAILY 09/08/23 [History] Atorvastatin [Lipitor] 40 mg PO HS 09/08/23 [History] Docusate [Colace] 100 mg PO DAILY 09/08/23 [History] Famotidine [Pepcid] 20 mg PO Q2D 09/08/23 [History] Heparin Sodium,Porcine (1 ml) [Heparin Sodium] 5,000 unit SQ Q12HR 09/08/23 [History] Insulin Lispro [humaLOG Kwikpen] See Protocol SQ ACHS 09/08/23 [History] Ipratropium-Albuterol Nebulize [Duoneb 0.5 mg-3 mg/3 ml Soln] 3 ml INHALATION RT-Q4H 09/08/23 [History] Melatonin 6 mg PO HS 09/08/23 [History] Midodrine HCl [ProAmatine] 10 mg PO Q8H PRN 09/08/23 [History] Nitroglycerin Sl Tabs [Nitrostat] 0.4 mg SUBLINGUAL Q5M PRN 09/08/23 [History] QUEtiapine [SEROquel] 50 mg PO DAILY 09/08/23 [History] QUEtiapine [SEROquel] 100 mg PO HS 09/08/23 [History] bisacodyL [Dulcolax] 10 mg RECTAL DAILY PRN 09/08/23 [History] hydrOXYzine HCL [Atarax] 25 mg PO Q8H PRN 09/08/23 [History] polyethylene glycoL 3350 [Miralax] 17 gm PO DAILY PRN 09/08/23 [History] Darbepoetin Tiburcio [Aranesp] 60 mcg SQ Q7D each 09/12/23 [Rx] Folic Acid 1 mg PO DAILY 30 Days #30 tab 09/12/23 [Rx] Thiamine [Vitamin B-1] 100 mg PO DAILY 30 Days #30 tab 09/12/23 [Rx] carvediloL [Coreg*] 12.5 mg PO BID-W/MEALS tab 09/12/23 [Rx] traMADol HCL 50 mg PO Q6H PRN #12 tab 09/12/23 [Rx] Patient Instructions/Handouts: Coronary Artery Disease (DC), Chest Pain (DC), Dialysis Diet (DC), End Stage Kidney Disease (DC) Activity/Diet/Wound Care/Special Instructions: Activity: As tolerated. Fall precautions in place. Diet: Heart healthy and carb consistent diet. Chopped. Avoid salts, or foods with hidden salts such as canned or boxed foods and frozen dinners. Extra salt makes your heart work harder and traps the fluid in your body for longer. Special Instructions: Take all of your medications as directed and remember to keep all of your doctor's appointments and follow-up as needed. You will need to follow-up outpatient with your primary care doctor, nurse aide evaluator, and aircraft refueller at [facility]. Resume hemodialysis on Tuesdays, , and Saturdays. Continue Aranesp 60 mcg subcutaneously every 7 days. Thank you for allowing us to participate in your care, it was truly a pleasure having you for our patient!!! . Discharge Disposition: TRANSFER TO SNF/ECF
--- NOTE | 2023-09-12 11:21 | P.PN ---
Subjective HISTORY OF PRESENT ILLNESS: This is a 73-year-old male patient with history of coronary artery disease with CABG 3 months ago, history of end-stage renal disease, tracheostomy, paroxysmal atrial fibrillation, COPD, diabetes mellitus type 2, benign prostatic hypertrophy, hypertension, hyperlipidemia, obstructive sleep apnea history of PEG tube, anemia of chronic kidney disease. We have been asked to evaluate the patient for non-ST elevated myocardial infarction. Patient gives history that in [place] 3 months ago he had CABG surgery. He is unable to give much other detail. He is currently at [facility]. Patient denies having history of heart failure and has never been diagnosed with [place]. He denies COPD. He denies lower extremity edema. No nausea or vomiting. No blood in his urine or stool. He denies having stroke or seizure. He states he has been brought into the hospital due to shortness of breath. His last dialysis was on Tuesday. He states he was at dialysis when he developed shortness of breath and was bro ught in. No chest pain, tightness or chest pressure. He does have a cough with sputum production. Patient has been started on a heparin drip. Patient is seen today in the emergency center waiting for bed on the cardiac stepdown unit. He EKG: Sinus rhythm with no acute ST-T wave changes. Chest x-ray: Persistent pulmonary venous congestion without overt failure. Overall stable chest. Left basilar effusion with atelectasis and/or infiltrate. Laboratory studies: WBC 5.4, hemoglobin 8.4, platelet count 198. INR is 1. Sodium 140, potassium 4, BUN 33 creatinine 4.83. Troponin 0.052 and 0.055. proBNP 25,200. Home cardiac medications: Amiodarone 200 mg daily, aspirin 81 mg daily, atorvast atin 40 mg at bedtime, Coreg 3.125 mg twice daily, heparin 5000 units subcu every 12 hours, Nitrostat as needed. 09/08 CABG report has been obtained from [facility]. Patient underwent CABG on 04/28/2023 with bypass graft x 2 with saphenous vein graft to the LAD, saphenous vein graft to the terminal circumflex coronary artery. Patient is seen today in follow-up on the cardiac stepdown unit. He is on a heparin drip. His blood pressure readings remain elevated, 167/71. Heart rate in the 70s, pulse ox 97% on 3 L nasal cannula. Patient denies having any chest pain. Repeat blood work reveals hemoglobin 7.9. BUN 48 creatinine 7.05. Potassium 4.7 and magnesium 2. TSH 3.43. Echocardiogram is pending. 09/10/2023 Patient examined this morning at the bedside. Patient is currently sleeping at the time of examination and appears comfortable. Patient without complaints of chest pain or shortness of breath. Patient's blood pressure is elevated this morning with a systolic between [id number]. Echocardiogram completed revealing ejection fraction 55 to 60%, trace to mild MR, trace to mild TR. 09/11/2023 Patient examined this morning at the bedside. Patient is currently eating annabel kfast. He denies any chest pain or pressure. Denies any shortness of breath. Telemetry reveals sinus mechanism in the 60s. Blood pressure stable today with a systolic between [id number]. 09/12/2023 Patient examined this morning at the bedside. Patient currently denies chest pain or pressure. He denies shortness of breath. Vital signs are stable. PHYSICAL EXAM: VITAL SIGNS: Reviewed. GENERAL: Well-developed in no acute distress. NECK: Supple. No JVD or thyromegaly. + Trach LUNGS: Respirations even and unlabored. Lungs essentially clear to auscultation bilaterally. HEART: Regular rate and rhythm. S1 and S2 heard. ABDOMEN: + PEG tube EXTREMITIES: Normal range of motion. No clubbing or cyanosis. Peripheral pulses intact. No lower extremity edema ASSESSMENT: End-stage renal disease on hemodialysis Chronically elevated troponin secondary to end-stage renal disease History of tracheostomy placement Coronary artery disease with previous CABG x 2 vessels, SVG to LAD and SVG to circumflex Paroxysmal atrial fibrillation, not on anticoagulation for unknown reason COPD Diabetes mellitus type 2 Hypertension Hyperlipidemia Anemia of chronic disease due to CKD PLAN: Continue current cardiac medications Continue to monitor blood pressure Re-eval continuous churn buttermaker anticoagulation on an outpatient basis. Unclear if patient's history of atrial fibrillation was related to his CABG or not. Hemodialysis per nephrology. Currently on Tuesday schedule We will sign off. Please reconsult if needed. Nurse practitioner note has been reviewed by physician. Signing provider agrees with the documented findings, assessment, and plan of care documented by SOFTWARE IMPLEMENTATION PROJECT MANAGER as a scribe. Objective - Vital Signs Vital signs: Vital Signs Temp 97.5 F L 09/12/23 08:00 Pulse 72 09/12/23 08:08 Resp 18 09/12/23 08:00 BP 123/72 09/12/23 08:00 Pulse Ox 94 L 09/12/23 08:00 FiO2 Intake & Output 09/11/23 09/12/23 09/12/23 18:59 06:59 18:59 Intake Total 120 250 240 Output Total 0 0 Balance 120 250 240 Weight 98 kg Intake: IV 10 Invasive Line 1 10 Oral 120 240 240 Output: Gastric Drainage 0 Urine 0 0 Stool 0 Urine/Stool Mix 0 Emesis 0 Oral Regurgitation 0 Other 0 Other: Voiding Method Diaper Diaper Diaper Incontinent Incontinent Incontinent # Voids 0 0 # Bowel Movements 0 - Labs CBC & Chem 7: 09/12/23 08:54 09/12/23 08:54 Labs: Abnormal Lab Results - Last 24 Hours (Table) 09/11/23 09/12/23 09/12/23 Range/Units 11:26 05:23 08:54 RBC 2.33 L (4.30-5.90) m/uL Hgb 7.8 L (13.0-17.5) gm/dL Hct 25.8 L (39.0-53.0) % MCV 110.8 H (80.0-100.0) fL MCHC 30.3 L (31.0-37.0) g/dL RDW 18.2 H (11.5-15.5) % Macrocytosis Marked A Sodium (137-145) mmol/L BUN (9-20) mg/dL Creatinine (0.66-1.25) mg/dL POC Glucose (mg/dL) 112 H 117 H (70-110) mg/dL Total Protein (6.3-8.2) g/dL Albumin (3.5-5.0) g/dL 09/12/23 Range/Units 08:54 RBC (4.30-5.90) m/uL Hgb (13.0-17.5) gm/dL Hct (39.0-53.0) % MCV (80.0-100.0) fL MCHC (31.0-37.0) g/dL RDW (11.5-15.5) % Macrocytosis Sodium 135 L (137-145) mmol/L BUN 37 H (9-20) mg/dL Creatinine 7.30 H* (0.66-1.25) mg/dL POC Glucose (mg/dL) (70-110) mg/dL Total Protein 5.4 L (6.3-8.2) g/dL Albumin 3.0 L (3.5-5.0) g/dL
[2023-09-12 11:45] VITALS: BP 108/64
[2023-09-12 11:53] LABS: Glucose,Whole Blood 243 mg/dL (70-110)
--- NOTE | 2023-09-12 12:13 | P.PN ---
Subjective patient is seen for follow-up for end-stage renal disease. No significant complaints today. scheduled for hemodialysis in a.m. Objective - Vital Signs Vital signs: Vital Signs Temp 97.5 F L 09/12/23 08:00 Pulse 59 L 09/12/23 11:44 Resp 18 09/12/23 11:44 BP 108/64 09/12/23 11:44 Pulse Ox 92 L 09/12/23 11:44 FiO2 Intake & Output 09/11/23 09/12/23 09/12/23 18:59 06:59 18:59 Intake Total 120 250 240 Output Total 0 0 Balance 120 250 240 Weight 98 kg Intake: IV 10 Invasive Line 1 10 Oral 120 240 240 Output: Gastric Drainage 0 Urine 0 0 Stool 0 Urine/Stool Mix 0 Emesis 0 Oral Regurgitation 0 Other 0 Other: Voiding Method Diaper Diaper Diaper Incontinent Incontinent Incontinent # Voids 0 0 # Bowel Movements 0 - Exam patient is awake, comfortable, no acute distress. Examination of the heart S1 and S2 Examination of the lungs bilateral breath sounds are heard Abdomen is soft nontender Examination of lower extremity shows no significant edema. - Labs CBC & Chem 7: 09/12/23 08:54 09/12/23 08:54 Labs: Abnormal Lab Results - Last 24 Hours (Table) 09/12/23 09/12/23 09/12/23 Range/Units 05:23 08:54 08:54 RBC 2.33 L (4.30-5.90) m/uL Hgb 7.8 L (13.0-17.5) gm/dL Hct 25.8 L (39.0-53.0) % MCV 110.8 H (80.0-100.0) fL MCHC 30.3 L (31.0-37.0) g/dL RDW 18.2 H (11.5-15.5) % Macrocytosis Marked A Sodium 135 L (137-145) mmol/L BUN 37 H (9-20) mg/dL Creatinine 7.30 H* (0.66-1.25) mg/dL POC Glucose (mg/dL) 117 H (70-110) mg/dL Total Protein 5.4 L (6.3-8.2) g/dL Albumin 3.0 L (3.5-5.0) g/dL 09/12/23 Range/Units 11:50 RBC (4.30-5.90) m/uL Hgb (13.0-17.5) gm/dL Hct (39.0-53.0) % MCV (80.0-100.0) fL MCHC (31.0-37.0) g/dL RDW (11.5-15.5) % Macrocytosis Sodium (137-145) mmol/L BUN (9-20) mg/dL Creatinine (0.66-1.25) mg/dL POC Glucose (mg/dL) 243 H (70-110) mg/dL Total Protein (6.3-8.2) g/dL Albumin (3.5-5.0) g/dL Assessment and Plan Assessment: 1. End-stage renal disease maintained on hemodialysis on Tuesday schedule. 2. Coronary disease status post CABG. 3. Chest pain. Cardiology following. 4. Chronic tracheostomy and PEG tube. PEG tube not being used. Tolerating oral intake. 5. Anemia of chronic kidney disease. 6. Diabetes mellitus. Plan: hemodialysis on a Tuesday schedule continue [facility]
[2023-09-12 13:24] VITALS: PULSE 70
== END 2023-09-12 14:10 | DRG 302 ==
LOC: EC 09:42 → 3SCARD 11:44
PROVIDERS: ADMIT Student in an Organized Health Care Education/Training Program; ATTEND Student in an Organized Health Care Education/Training Program
PROC: 5A1D70Z Performance of Urinary Filtration, Intermittent, Less than 6 Hours Per Day (ICD-10-PCS; principal; 2023-09-10)
DX: I25.110 Atherosclerotic heart disease of native coronary artery with unstable angina pectoris (principal); N18.6 End stage renal disease; I12.0 Hypertensive chronic kidney disease with stage 5 chronic kidney disease or end stage renal disease; D53.9 Nutritional anemia, unspecified; D63.1 Anemia in chronic kidney disease; E78.5 Hyperlipidemia, unspecified; I48.0 Paroxysmal atrial fibrillation; E11.22 Type 2 diabetes mellitus with diabetic chronic kidney disease; J44.9 Chronic obstructive pulmonary disease, unspecified; R79.89 Other specified abnormal findings of blood chemistry; N40.0 Benign prostatic hyperplasia without lower urinary tract symptoms; Z95.1 Presence of aortocoronary bypass graft; Z79.01 Long term (current) use of anticoagulants; Z79.82 Long term (current) use of aspirin; Z79.899 Other long term (current) drug therapy; Z90.5 Acquired absence of kidney; Z93.0 Tracheostomy status; Z93.1 Gastrostomy status; Z99.2 Dependence on renal dialysis
CPT/HCPCS: 36415; 71046; 80048; 80053; 82728; 83036; 83540; 83550; 83690; 83735; 83880; 84443; 84484; 85025; 85027; 85610; 85730; 90935; 93005; 93306; 94640; 96361; 96365; 96366; 99285